=== PATIENT | female | born 1945 | race Caucasian/White ===

== ENCOUNTER → 2016-03-28 | Outpatient (CLI) | payer OTHER ==
[~2016-03-28] MED LIST: ASPI81TA28 PO; CALCTAB7 PO; CYAN10005 PO; EFFSR75 PO; LEVO88TA22 PO; LEVO88TA3 PO; MULT-506 PO; PANT40TA PO; SIMV40TA2 PO
--- NOTE | 2016-03-29 12:41 | MAMMOGRAPHY REPORT ---
BILATERAL DIGITAL SCREENING MAMMOGRAM WITH CAD: 03/28/2016 CLINICAL HISTORY: Routine screening. Patient has no complaints. TECHNIQUE: Bilateral CC and MLO views were obtained. Current study was also evaluated with a Comput er Aided Detection (CAD) system. COMPARISON: Comparison is made to exams dated: 03/26/2015 mammogram, 03/21/2014 ultrasound, 03/21/2014 ma mmogram, 09/16/2013 mammogram, 12/04/2012 mammogram, and 08/10/2011 mammogram - [facility] enter. BREAST COMPOSITION: There are scattered areas of fibroglandular density in both breasts. FINDINGS: There are bilateral benign coarse calcifications and rodlike secretory calcifications. No new suspicious mass, architectural distortion or cluster of suspicious microcalcifications is seen. IMPRESSION: ACR BI-RADS CATEGORY 1: NEGATIVE There is no mammographic evidence of malignancy. A 1 year screening mammogram is recommended. The p atient will receive written notification of the results. Approximately 10% of breast cancers are not detected with mammography. A negative mammographic repor t should not delay biopsy if a clinically suggestive mass is present. Kenia Douglas M.D. ay/:03/28/2016 15:23:15 Architecture Manager: Koki Tomlin, [facility] letter sent: Normal 1/2 BI-RADS Code: ACR BI-RADS Category 1: Negative
== END | disposition home or self-care (01) ==
LOC: C.MAMM 09:15
PROVIDERS: ATTEND Internal Medicine
DX: Z12.31 Encounter for screening mammogram for malignant neoplasm of breast (principal)

== ENCOUNTER → 2016-05-10 | Outpatient (CLI) | payer OTHER ==
[2016-05-10 12:46] LABS: BASO % 0.7 %; BASO ABS # 0.04 K/uL (0-0.2); COMPLETE YES; HEMATOCRIT 40.6 % (37-47); LYMPH % 25.7 %; LYMPH ABS # 1.39 K/uL (1.2-3.4); MEAN CELL VOLUME 97.8 fL (80-100); MEAN CORPUSCULAR HEMOGLOBIN 32.3 pg (25-34); MEAN PLATELET VOLUME 9.9 fL (7.4-10.4); MONO % 10.7 %; NEUT % 60.9 %; PLATELET COUNT 213 K/uL (130-400); RED BLOOD COUNT 4.15 M/uL (4.2-5.4); WHITE BLOOD COUNT 5.41 K/uL (4.8-10.8)
[2016-05-10 13:10] LABS: ALT/SGPT 21 U/L (12-78); BLOOD UREA NITROGEN 15 mg/dl (7-18); BUN/CREATININE RATIO 17.6 (10-20); CALCIUM 9.2 mg/dl (8.5-10.1); CARBON DIOXIDE 31 mmol/L (21-32); CHLORIDE 104 mmol/L (98-107); CHOLESTEROL 193 mg/dl (0-200); CREATININE 0.83 mg/dl (0.60-1.20); GLUCOSE 96 mg/dl (70-99); POTASSIUM 4.5 mmol/L (3.5-5.1); SODIUM 140 mmol/L (136-145)
[2016-05-10 13:19] LABS: ALKALINE PHOSPHATASE 74 U/L (45-117); AST/SGOT 16 U/L (15-37); CHOLESTEROL/HDL RATIO 3.4; HDL CHOLESTEROL 57 mg/dl; LDL CHOLESTEROL CALCULATED 104 mg/dl; THYROID STIMULATING HORMONE 0.961 uIu/ml (0.300-4.500); TRIGLYCERIDES 158 mg/dl (0-150); VERY LOW DENSITY LIPOPROT CALC 32 mg/dl
== END | disposition home or self-care (01) ==
LOC: C.LABBFT 08:42
PROVIDERS: ATTEND Internal Medicine
DX: E03.9 Hypothyroidism, unspecified (principal); E78.00 Pure hypercholesterolemia, unspecified; J06.9 Acute upper respiratory infection, unspecified; R73.03 Prediabetes

== ENCOUNTER → 2016-08-25 | Outpatient (CLI) | payer OTHER ==
[2016-08-25 17:37] LABS: URINE APPEARANCE CLOUDY (CLEAR); URINE BILIRUBIN NEG (NEG); URINE COLOR YELLOW; URINE EPITHELIAL CELL AUTO 0-5 /lpf (0-5); URINE NITRITE NEG (NEG); URINE PH 5.5 (4.5-7.5); URINE SPECIFIC GRAVITY 1.014 (1.000-1.030); UROBILINOGEN NEG (NEG)
[2016-08-25 17:48] LABS: MANUAL MICROSCOPIC REQUIRED? NO; REVIEW REQ? YES
== END | disposition home or self-care (01) ==
LOC: C.LABBFT 11:22
PROVIDERS: ATTEND Physician Assistant Medical
DX: R39.9 Unspecified symptoms and signs involving the genitourinary system (principal)

== ENCOUNTER → 2016-10-31 | Day surgery (SDC) | payer OTHER ==
[2016-10-18 11:50] VITALS: BMI 28.0
[~2016-10-31] VITALS: Ht 165.1 cm; Wt 77.3 kg
[~2016-10-31] MED LIST changes: -LEVO88TA22 PO; +LIDOCAINE HCL 2% 2 ML VIAL (20MG/ML) ONE; -PANT40TA PO; +PHENYLEPHRINE HCL INJ 10 MG/ML VIAL ONE; +PROPOFOL IV EMULSION 10 MG/ML 20 ML VIAL IV ONE; +SODIUM CHLORIDE 0.9% 500ML 500 ML IV ONE
[2016-10-31 14:09] VITALS: Ht 165.1 cm; Wt 77.3 kg
--- NOTE | 2016-10-31 14:21 | Endo History and Physical ---
History & Physical Date of Service: Oct 31, 2016. Chief Complaint: SCREENING Referring Physician: DR. CASTRO History of Present Illness 70 yo CF who presents for screening colonoscopy. Past Medical History Arthritis, Anxiety, Reflux, High Cholesterol, Thyroid Disease, Depression Past Surgical History Hx Cardiac Surgery: No Hx Internal Defibrillator: No Hx Pacemaker: No Hx Abdominal Surgery: No Hx of Implantable Prosthesis: No Hx Post-Op Nausea and Vomiting: Yes Hx Cancer Surgery: No Hx Thoracic Surgery: No Hx Orthopedic: Yes (LT TKA, LT SHOULDER SURGERY) Hx Urinary Tract Surgery: No Family History Colon CA Social History Smoking Status: Never Smoker Hx Substance Use: No Hx Alcohol Use: No Allergies Coded Allergies: Sulfa Antibiotics (Verified Allergy, Unknown, HIVES, 10/31/16) Current Medications Reported Home Medications Medications Dose Route/Sig Max Daily Dose Days Date Category Aspirin Ec (Aspirin) 81 Mg Tab 81 Mg PO WK 10/18/16 Reported Vitamin B-12 (Cyanocobalamin) 1,000 Mcg Tab 1,000 Mcg PO QAM 10/18/16 Reported Levothyroxine Sodium 88 Mcg Tab 1 Tab PO QAM 10/18/16 Reported Multivitamin (Multivitamins) Tab 1 Tab PO QAM 07/23/12 Reported Effexor Extended Rel (Venlafaxine Hcl) 75 Mg Capcr 75 Mg PO QAM 05/26/12 Reported Caltrate 600 Plus (Calcium Carbonate-Vitamin D W/) 1 Tab Tab 1 Tab PO QAM 05/26/12 Reported Zocor (Simvastatin) 40 Mg Tab 40 Mg PO QPM 05/26/12 Reported Vital Signs Weight (Kilograms): 77.27 Height (Feet): 5 Height (Inches): 5 Date Time Temp Pulse Resp B/P (MAP) Pulse Ox O2 Delivery O2 Flow Rate FiO2 10/31/16 14:14 36.4 77 16 138/88 (105) 93 Room Air Physical Exam General Appearance: WD/WN, no apparent distress Respiratory/Chest: Auscultation: breath sounds normal Cardiovascular: Heart Auscultation: RRR Abdomen: Bowel Sounds: normal Inspection & Palpation: soft, non-distended, no tenderness, guarding & rebound Assessment and Plan Assessment: 70 yo CF who presents for screening colonoscopy. Plan: Proceed with colonoscopy.
--- NOTE | 2016-10-31 15:54 | Discharge Instructions ---
Endoscopy Patient Instructions Date / Procedure(s) Performed Oct 31, 2016. Colonoscopy Allergy Information Coded Allergies: Sulfa Antibiotics (Verified Allergy, Unknown, HIVES, 10/31/16) Discharge Date / Findings Oct 31, 2016. Colon polyps Diverticulosis Internal hemorrhoids Medication Instructions OK to resume all medications today as prescribed Reported Home Medications Medications Dose Route/Sig Max Daily Dose Days Date Category Aspirin Ec (Aspirin) 81 Mg Tab 81 Mg PO WK 10/18/16 Reported Vitamin B-12 (Cyanocobalamin) 1,000 Mcg Tab 1,000 Mcg PO QAM 10/18/16 Reported Levothyroxine Sodium 88 Mcg Tab 1 Tab PO QAM 10/18/16 Reported Multivitamin (Multivitamins) Tab 1 Tab PO QAM 07/23/12 Reported Effexor Extended Rel (Venlafaxine Hcl) 75 Mg Capcr 75 Mg PO QAM 05/26/12 Reported Caltrate 600 Plus (Calcium Carbonate-Vitamin D W/) 1 Tab Tab 1 Tab PO QAM 05/26/12 Reported Zocor (Simvastatin) 40 Mg Tab 40 Mg PO QPM 05/26/12 Reported Provider Instructions Activity Restrictions - No exercising or heavy lifting for 24 hours. - Do not drink alcohol the day of the procedure. - Do not drive a car or operate machinery until the day after the procedure. - Do not make any important decisions or sign important papers in 24 hours after the procedure. Following Day: - Return to full activity which may include returning to work/school. Diet Start your diet with liquids and light foods (jello, soup, juice, toast). Then eat your usual diet if not nauseated. Treatment For Common After Affects For mild abdominal pain, bloating, or excessive gas: - Rest - Eat lightly - Lie on right side Follow-Up Information Follow-up with DR. CASTRO as scheduled Anesthesia Information What You Should Know You have had a procedure that required some medicine to reduce anxiety and discomfort. This treatment is called moderate sedation. After receiving the treatment, you may be sleepy, but you will be able to breathe on your own. The effects of the treatment may last for several hours. Follow these instructions along with Activity/Diet recommendations noted above: * Do NOT do anything where dizziness or clumsiness would be dangerous. * Rest quietly at home today, then you can be up and about tomorrow. * Have a responsible person stay with you the rest of today. * You may have had an I.V. today. If so, you may take the dressing off later today. Recommendations Call your doctor if: * Trouble breathing * Continuous vomiting for more than 24 hours * Temperature above 101 degrees * Severe abdominal pain or bloating * Pain not relieved by pain medicine ordered * There is increased drainage or redness from any incision * A large amount of rectal bleeding greater than 2-3 tablespoons. (If you had a polyp/s removed or have hemorrhoids, a small amount of blood - from the rectum is to be expected.) * You have any unanswered questions or concerns. IN THE EVENT OF A SERIOUS EMERGENCY, GO TO THE NEAREST EMERGENCY ROOM Your discharge instructions were prepared by provider Marco Anderson. Patient Instructions Signature Page Josseline Garcia Patient (or Guardian) Signature/Date: I have read and understand the instructions given to me by my caregivers. Caregiver/RN/Doctor Signature/Date: The above-named patient and/or guardian has received patient instructions on this date. + Original Patient Signature Page (only) stays with chart. Please make copy for patient.
--- NOTE | 2016-10-31 15:54 | GI REPORT ---
Procedure Date: 10/31/2016 3:08 PM Procedure: Colonoscopy Indications: Screening for colorectal malignant neoplasm Medicines: Monitored Anesthesia Care Complications: No immediate complications. Estimated Blood Loss: Estimated blood loss: none. Procedure: Pre-Anesthesia Assessment: - Prior to the procedure, a History and Physical was performed, and patient medications and allergies were reviewed. The patient's tolerance of previous anesthesia was also reviewed. The risks and benefits of the procedure and the sedation options and risks were discussed with the patient. All questions were answered, and informed consent was obtained. Prior Anticoagulants: The patient has taken aspirin, last dose was 8 days prior to procedure. ASA Grade Assessment: II - A patient with mild systemic disease. After reviewing the risks and benefits, the patient was deemed in satisfactory condition to undergo the procedure. After I obtained informed consent, the scope was passed under direct vision. Throughout the procedure, the patient's blood pressure, pulse, and oxygen saturations were monitored continuously. The scope was introduced through the anus and advanced to the terminal ileum. The colonoscopy was performed without difficulty. The patient tolerated the procedure well. The quality of the bowel preparation was good. The terminal ileum, ileocecal valve, appendiceal orifice, and rectum were photographed. Findings: A 6 mm polyp was found in the ascending colon. The polyp was sessile. The polyp was removed with a piecemeal technique using a hot snare. Resection and retrieval were complete. A 3 mm polyp was found in the ascending colon. The polyp was sessile. The polyp was removed with a cold biopsy forceps. Resection and retrieval were complete. Multiple small-mouthed diverticula were found in the sigmoid colon. Non-bleeding internal hemorrhoids were found during retroflexion. The hemorrhoids were small. Impression: - One 6 mm polyp in the ascending colon, removed piecemeal using a hot snare. Resected and retrieved. - One 3 mm polyp in the ascending colon, removed with a cold biopsy forceps. Resected and retrieved. - Diverticulosis in the sigmoid colon. - Non-bleeding internal hemorrhoids. Recommendation: - Resume previous diet. - Continue present medications. - Repeat colonoscopy for surveillance based on pathology results. - Return to primary care physician as previously scheduled. Marco Anderson DO 10/31/2016 3:53:21 PM This report has been signed electronically. Note Initiated On: 10/31/2016 3:08 PM I attest to the content of the Intraoperative Record and orders documented therein, exceptions below
[2016-10-31 16:29] VITALS: BP 107/46; PULSE 59; O2SAT 95
--- NOTE | 2016-10-31 16:36 | Anesthesiology Progress Note ---
Anesthesia Post Op Note Date & Time Oct 31, 2016 at 16:35 Vital Signs Pain Intensity: 0 Vital Signs Past 12 Hours Date Time Temp Pulse Resp B/P (MAP) Pulse Ox O2 Delivery O2 Flow Rate FiO2 10/31/16 16:29 59 20 107/46 (66) 95 Room Air 10/31/16 16:15 64 20 118/81 (93) 98 Room Air 10/31/16 15:57 70 20 116/65 (82) 95 Room Air 10/31/16 14:14 36.4 77 16 138/88 (105) 93 Room Air Notes Mental Status: alert / awake / arousable, participated in evaluation Pt Amnestic to Procedure: Yes Nausea / Vomiting: adequately controlled Pain: adequately controlled Airway Patency, RR, SpO2: stable & adequate BP & HR: stable & adequate Hydration State: stable & adequate Anesthetic Complications: no major complications apparent
== END | disposition home or self-care (01) ==
LOC: C.GI 13:48
PROVIDERS: ATTEND Internal Medicine
DX: Z12.11 Encounter for screening for malignant neoplasm of colon (principal); D12.2 Benign neoplasm of ascending colon; M19.90 Unspecified osteoarthritis, unspecified site; K21.9 Gastro-esophageal reflux disease without esophagitis; E78.00 Pure hypercholesterolemia, unspecified; K64.8 Other hemorrhoids; K57.90 Diverticulosis of intestine, part unspecified, without perforation or abscess without bleeding; F32.9 Major depressive disorder, single episode, unspecified; Z96.652 Presence of left artificial knee joint; Z79.82 Long term (current) use of aspirin; Z80.0 Family history of malignant neoplasm of digestive organs

== ENCOUNTER → 2017-01-09 | Outpatient (CLI) | payer OTHER ==
[~2017-01-09] MED LIST changes: -LIDOCAINE HCL 2% 2 ML VIAL (20MG/ML) ONE; -PHENYLEPHRINE HCL INJ 10 MG/ML VIAL ONE; -PROPOFOL IV EMULSION 10 MG/ML 20 ML VIAL IV ONE; -SODIUM CHLORIDE 0.9% 500ML 500 ML IV ONE
[2017-01-09 12:13] LABS: BASO % 0.6 %; BASO ABS # 0.03 K/uL (0-0.2); COMPLETE YES; EOS % 3.2 %; HEMATOCRIT 39.4 % (37-47); IG% 0.2 %; LYMPH % 27.7 %; MEAN CORPUSCULAR HEMOGLOBIN 32.7 pg (25-34); MEAN CORPUSCULAR HGB CONC 32.7 g/dl (32-36); MEAN PLATELET VOLUME 10.3 fL (7.4-10.4); MONO % 9.8 %; NEUT % 58.5 %; PLATELET COUNT 201 K/uL (130-400); RED BLOOD COUNT 3.94 M/uL (4.2-5.4); WHITE BLOOD COUNT 4.69 K/uL (4.8-10.8)
[2017-01-09 12:39] LABS: ALT/SGPT 21 U/L (12-78); BLOOD UREA NITROGEN 15 mg/dl (7-18); BUN/CREATININE RATIO 21.5 (10-20); CALCIUM 8.9 mg/dl (8.5-10.1); CARBON DIOXIDE 30 mmol/L (21-32); CHLORIDE 103 mmol/L (98-107); CHOLESTEROL 159 mg/dl (0-200); CREATININE 0.69 mg/dl (0.60-1.20); GLUCOSE 97 mg/dl (70-99); SODIUM 138 mmol/L (136-145); TRIGLYCERIDES 152 mg/dl (0-150); VERY LOW DENSITY LIPOPROT CALC 30 mg/dl
[2017-01-09 12:43] LABS: ESTIMATED AVERAGE GLUCOSE 123 mg/dl; HA1C FLAG Normal (Normal)
[2017-01-09 12:47] LABS: ALB/GLOB RATIO 1.1 (0.9-2); ALKALINE PHOSPHATASE 71 U/L (45-117); AST/SGOT 18 U/L (15-37); CHOLESTEROL/HDL RATIO 3.3; HDL CHOLESTEROL 48 mg/dl; LDL CHOLESTEROL CALCULATED 81 mg/dl; THYROID STIMULATING HORMONE 0.506 uIu/ml (0.300-4.500)
== END | disposition home or self-care (01) ==
LOC: C.LABBFT 08:22
PROVIDERS: ATTEND Internal Medicine
DX: E03.9 Hypothyroidism, unspecified (principal); E78.00 Pure hypercholesterolemia, unspecified; R73.03 Prediabetes

== ENCOUNTER → 2017-02-16 | Outpatient (CLI) | payer OTHER | END | disposition home or self-care (01) | LOC: C.MAMM 11:09 | PROVIDERS: ATTEND Internal Medicine | DX: M85.89 Other specified disorders of bone density and structure, multiple sites (principal) ==

== ENCOUNTER → 2017-02-27 | Outpatient (CLI) | payer OTHER | END | disposition home or self-care (01) | LOC: C.LABBFT 09:13 | PROVIDERS: ATTEND Internal Medicine | DX: M85.80 Other specified disorders of bone density and structure, unspecified site (principal) ==

== ENCOUNTER → 2017-03-30 | Outpatient (CLI) | payer OTHER ==
--- NOTE | 2017-03-30 14:39 | MAMMOGRAPHY REPORT ---
BILATERAL DIGITAL SCREENING MAMMOGRAM TOMOSYNTHESIS WITH CAD: 03/30/2017 CLINICAL HISTORY: Routine screening. Patient has no complaints. TECHNIQUE: Breast tomosynthesis in addition to standard 2D mammography was performed. Current study was also evaluated with a Computer Aided Detection (CAD) system. COMPARISON: Comparison is made to exams dated: 03/28/2016 mammogram, 03/26/2015 mammogram, 03/21/2014 mamm ogram, 12/04/2012 mammogram, 08/10/2011 mammogram - [facility], and 08/01/2008. BREAST COMPOSITION: There are scattered areas of fibroglandular density in both breasts. FINDINGS: No suspicious masses, calcifications, or areas of architectural distortion are noted in ei ther breast. There has been no significant interval change compared to prior exams. Scattered bilater al benign-appearing calcifications are not significantly changed. IMPRESSION: ACR BI-RADS CATEGORY 2: BENIGN There is no mammographic evidence of malignancy. A 1 year screening mammogram is recommended. The pa tient will receive written notification of the results. Approximately 10% of breast cancers are not detected with mammography. A negative mammographic report should not delay biopsy if a clinically suggestive mass is present. Annabella Espinal M.D. /:03/30/2017 12:37:45 Healthcare Management: Stacy RAMEY)(Meenakshi), [facility] letter sent: Normal 1/2 BI-RADS Code: ACR BI-RADS Category 2: Benign
== END | disposition home or self-care (01) ==
LOC: C.MAMM 09:30
PROVIDERS: ATTEND Internal Medicine
DX: Z12.31 Encounter for screening mammogram for malignant neoplasm of breast (principal)

== ENCOUNTER → 2017-06-12 | Outpatient (CLI) | payer OTHER ==
[2017-06-12 10:09] LABS: BASO % 0.9 %; BASO ABS # 0.04 K/uL (0-0.2); EOS % 2.4 %; EOS ABS # 0.11 K/uL (0-0.5); HEMATOCRIT 40.6 % (37-47); HEMOGLOBIN 13.2 g/dL (12.0-16.0); IG# 0.01 K/uL (0.00-0.02); LYMPH ABS # 1.31 K/uL (1.2-3.4); MEAN CORPUSCULAR HEMOGLOBIN 32.2 pg (25-34); MEAN CORPUSCULAR HGB CONC 32.5 g/dl (32-36); MONO % 8.4 %; MONO ABS # 0.38 K/uL (0.11-0.59); NEUT % 59.1 %; NEUT ABS # 2.66 K/uL (1.4-6.5); PLATELET COUNT 211 K/uL (130-400); RED CELL DISTRIBUTION WIDTH CV 13.5 % (11.5-14.5); RED CELL DISTRIBUTION WIDTH SD 48.7 fL (36.4-46.3); WHITE BLOOD COUNT 4.51 K/uL (4.8-10.8)
[2017-06-12 10:39] LABS: ALBUMIN 3.6 gm/dl (3.4-5.0); ALT/SGPT 21 U/L (12-78); BLOOD UREA NITROGEN 15 mg/dl (7-18); CALCIUM 8.9 mg/dl (8.5-10.1); CARBON DIOXIDE 28 mmol/L (21-32); CREATININE 0.65 mg/dl (0.60-1.20); GLUCOSE 92 mg/dl (70-99); POTASSIUM 4.1 mmol/L (3.5-5.1); SODIUM 139 mmol/L (136-145)
[2017-06-12 10:49] LABS: ALKALINE PHOSPHATASE 63 U/L (45-117); AST/SGOT 14 U/L (15-37); TOTAL PROTEIN 7.2 gm/dl (6.4-8.2)
[2017-06-16 15:02] LABS: VITAMIN B6** TC 926 25.4 ng/mL (2.1-21.7)
--- NOTE | 2017-06-23 11:43 | CODING QUERY MEDICAL NECESSITY ---
CQSUPPORTING DIAGNOSIS NEEDED A supporting diagnosis is required for the test/procedure performed on this patient in order for us to be reimbursed by the patient's insurance. Please provide a supporting diagnosis for the following test/procedure listed below next to the test name along with your signature. *If there is no additional diagnosis for this patient that would support the following test/procedure please document that below next to the test/procedure. Test(s)/Procedure(s) that require a supporting diagnosis: DOS 06/12/17 VITAMIN B12 TEST Provider Signature: Date: Thank you Shari Nayak Health Information Management Once completed, please kindly fax back to [phone] For questions please call [phone]
== END | disposition home or self-care (01) ==
LOC: C.LABBFT 08:26
PROVIDERS: ATTEND Physician Assistant Medical
DX: R20.8 Other disturbances of skin sensation (principal)

== ENCOUNTER → 2017-07-20 | Outpatient (CLI) | payer OTHER ==
[2017-07-20 12:48] LABS: BLOOD UREA NITROGEN 16 mg/dl (7-18); CREATININE 0.96 mg/dl (0.60-1.20)
== END | disposition home or self-care (01) ==
LOC: C.LABBFT 09:46
PROVIDERS: ATTEND Physician Assistant Medical
DX: Z01.812 Encounter for preprocedural laboratory examination (principal)

== ENCOUNTER → 2017-07-25 | Outpatient (CLI) | payer OTHER ==
[~2017-07-25] MED LIST changes: +GADAVIST IV PRN
--- NOTE | 2017-07-25 19:04 | DIAGNOSTIC IMAGING REPORT ---
MRI OF THE BRAIN WITHOUT AND WITH IV CONTRAST CLINICAL HISTORY: H54.7 Loss of vision COMPARISON STUDY: No previous studies for comparison. TECHNIQUE: MRI of the brain was performed from the vertex to the skull base utilizing various T1 and T2 weighted sequences. Following the IV administration of 7.5 mL of Gadavist contrast, additional enhanced images were obtained. FINDINGS: Sagittal T1, axial diffusion, proton density and T2 weighted axial, coronal FLAIR, and pre and post axial T1-weighted images were acquired. These were supplemented with post gadolinium coronal T1 weighted images. No intra or extra-axial mass lesions are visualized. Axial diffusion-weighted images reveal no evidence of acute or subacute infarction. There is no evidence of ventricular dilatation. Proton density T2-weighted and FLAIR images reveal foci of periventricular increased T2 signal, most pronounced in the occipital region. While nonspecific, the findings are likely a small vessel basis. There are no abnormal flow voids. There is no evidence of pathologic enhancement. IMPRESSION: 1. No acute intracranial findings 2. No evidence of intracranial mass 3. No evidence of acute or subacute infarction 4. Periventricular foci of increased T2 signal, likely on a small vessel basis. Electronically signed by: Andrey Hoffmann M.D. 07/25/2017 7:03 PM Dictated Date/Time: 07/25/2017 7:01 PM
== END | disposition home or self-care (01) ==
LOC: C.MRI 17:54
PROVIDERS: ATTEND Physician Assistant Medical
DX: H54.7 Unspecified visual loss (principal)

== ENCOUNTER → 2017-10-19 | Outpatient (CLI) | payer OTHER ==
[~2017-10-19] MED LIST changes: -GADAVIST IV PRN
[2017-10-19 12:22] LABS: BASO % 1.2 %; BASO ABS # 0.05 K/uL (0-0.2); EOS % 2.3 %; HEMATOCRIT 39.2 % (37-47); HEMOGLOBIN 12.9 g/dL (12.0-16.0); IG# 0.01 K/uL (0.00-0.02); LYMPH % 30.1 %; MEAN CELL VOLUME 99.7 fL (80-100); MEAN CORPUSCULAR HEMOGLOBIN 32.8 pg (25-34); MEAN CORPUSCULAR HGB CONC 32.9 g/dl (32-36); MEAN PLATELET VOLUME 10.5 fL (7.4-10.4); MONO % 9.5 %; MONO ABS # 0.41 K/uL (0.11-0.59); NEUT % 56.7 %; NEUT ABS # 2.45 K/uL (1.4-6.5); PLATELET COUNT 188 K/uL (130-400); RED CELL DISTRIBUTION WIDTH CV 13.7 % (11.5-14.5); WHITE BLOOD COUNT 4.32 K/uL (4.8-10.8)
[2017-10-19 13:10] LABS: ALBUMIN 3.4 gm/dl (3.4-5.0); ALKALINE PHOSPHATASE 60 U/L (45-117); ALT/SGPT 19 U/L (12-78); AST/SGOT 13 U/L (15-37); BLOOD UREA NITROGEN 19 mg/dl (7-18); CALCIUM 8.1 mg/dl (8.5-10.1); CARBON DIOXIDE 28 mmol/L (21-32); CHOLESTEROL 167 mg/dl (0-200); CREATININE 0.65 mg/dl (0.60-1.20); GLUCOSE 89 mg/dl (70-99); LDL CHOLESTEROL CALCULATED 91 mg/dl; SODIUM 139 mmol/L (136-145); TOTAL PROTEIN 6.5 gm/dl (6.4-8.2)
== END | disposition home or self-care (01) ==
LOC: C.LABBFT 08:02
PROVIDERS: ATTEND Internal Medicine
DX: E03.9 Hypothyroidism, unspecified (principal); E78.00 Pure hypercholesterolemia, unspecified; R73.03 Prediabetes; R03.0 Elevated blood-pressure reading, without diagnosis of hypertension

== ENCOUNTER 2024-12-28 11:20 | Inpatient (IN) ==
[2024-12-28] MEDS: ACETAMINOPHEN 1,000 MG/100 ML VIAL IV STA (12:23)
[2024-12-28] MEDS: HYDROmorphone INJ 0.5 MG/0.5 ML SYR IV STA (12:23)
--- NOTE | 2024-12-28 12:35 | XRay Report ---
Clinical History: Injury 5 views of the left knee are submitted for review. Findings: There is an acute comminuted fracture of the distal left femoral shaft and metaphysis with 45° of apex anterior angulation as well as displacement of fracture fragments. There is a left knee total arthroplasty in expected position. There is no definite sign of infection or loosening. No other osseous abnormality is identified. There are no radiopaque foreign bodies. Impression: 1. Acute comminuted fracture of the distal left femur with displacement and angulation 2. Left knee replacement ACT 112: Positive. There are findings on this exam that require communication between the performing entity and the patient following Patient Test Result Information Act ([place] ACT 112) guidelines. Electronically signed by Heron Barriga 12-28-2024 12:35 PM
--- NOTE | 2024-12-28 12:51 | Emergency Department Note ---
Impression & Plan Fracture of femur ED Provider Note NAME: RAMOS BARTON AGE: 79 SEX: F : 1945 ARRIVES VIA: Walk-In INFORMANT: Patient, ED PROVIDER(S): Quirino Cooper MD CHIEF COMPLAINT: Left knee injury HPI: This is a 79-year-old female seen for left knee injury. Patient states that she was in her barn on the second floor. Her right foot went through a hole in the barn roof. Her left leg got bent backwards. She noticed that she had pain to the left knee at this time. Swelling to the left knee. No head trauma. No blood thinners. No chest pain or shortness of breath ROS: See above HPI for pertinent positives & negatives. A total of 10 systems reviewed and were otherwise negative. PAST MEDICAL HISTORY: See Below PAST SURGICAL HISTORY: See Below FAMILY HISTORY: See Below SOCIAL HISTORY: See Below HOME MEDICATIONS: See Below ALLERGIES: See Below VITALS: See Below PHYSICAL EXAMINATION: General: resting comfortably in no acute distress Head: Normocephalic and atraumatic Eyes: Normal inspection, extraocular muscles intact Ear, nose, throat: Normal external exam Neck: Normal range of motion Respiratory: lungs clear to auscultation bilaterally Cardiovascular: Regular rate/rhythm, no murmur GI: soft, nontender, no guarding or rebound Extremities: Left knee swelling, tenderness to palpation, no hip pain Neuro: The patient awake and alert, appropriately conversive, no focal deficits, symmetric faces Skin: Warm, dry, and intact MEDICAL DECISION MAKING: This is a 79-year-old female presenting for left knee injury. Patient has significantly swollen left knee. Will do x-rays help assess. . X-ray as Independently interpreted me reveals a distal femur fracture, comminuted and displaced - Discussed case with orthopedic surgery, patient is Rakesh Alfonso PA-C for orthopedics. He will discuss with attending, Dr. Castellanos for determination of operative management here versus an outside facility. -Orthopedics is comfortable with admission here. Will order screening blood work, EKG. -Bloodwork is reviewed showing no significant leukocytosis, anemia, electrolyte or creatinine abnormality -ECG independently interpreted by me with normal sinus rhythm, rate of 69, normal axis, normal AR, normal QRS, normal QTc, no ST segment elevations consistent with STEMI criteria -Care discussed with Dr. Li for admission Differential diagnosis: Femur fracture, tib-fib fracture, tibial plateau fracture, patella fracture, knee dislocation Independent History obtained from: Diagnostics interpreted by me: ECG: See above Cardiac Monitoring: An order was placed for continuous cardiac monitoring. The monitor shows a rate of 67 with sinus rhythm. Past Med/Surg History Problem List (Updated 12/28/24 @ 20:12 by Quirino Cooper MD) Fracture of femur (Acute) Closed fracture of left distal femur Paresthesias (Acute) Normocytic anemia (Acute) Leukopenia (Acute) Alopecia (Acute) Medical History (Updated 12/28/24 @ 20:12 by Quirino Cooper MD) Benign familial tremor Cervical spondylosis without myelopathy Chronic gastritis Diverticulosis Hypothyroidism, unspecified (05/26/12) Hypercholesterolemia Prediabetes metformin daily Solitary pulmonary nodule Depression with anxiety History of colon polyps Osteoporosis Mitral regurgitation Stress incontinence Irritable bowel syndrome Nausea and vomiting after administration of anesthetic agent Depression Tubular adenoma of colon Internal hemorrhoids Surgical History (Updated 12/28/24 @ 14:50 by Janie Oseguera DO) History of esophagogastroduodenoscopy (EGD) last 2014 @ [facility] History of tooth extraction History of total knee arthroplasty left History of arthroscopy of left shoulder rotator cuff repair History of colonoscopy last 2021 @ [facility] History of tubal ligation Family History Father Leukemia Stroke syndrome Mother Diabetes Hypertension Grandmother Colon cancer Other No family history of adverse response to anesthesia Prostate cancer Denies family history of Ovarian cancer Myocardial infarction Breast cancer Social History Smoking Status: Never smoker Second Hand Exposure: No; Do You Dip or Chew Tobacco: No; Hx Alcohol Use: No Hx Substance Use: No Preferred Language: Honduran Communication Ability: Effective Visual Impairment: Limited Hearing Ability: Normal Mud Grinder Required: No Beliefs That Will Affect Care: None marital status: Current Living Situation: Spouse current occupational status: retired Other Information That Helps Us Care for You: No Feels Safe at Home: Yes Safety Concerns: Feels Safe At This Time Childhood Exposure to Second-Hand Smoke: Yes Diet: regular caffeine: Yes during the past year weight has: remained stable Dental Care, Regularly: Yes Physical Activity Frequency: 1-2 Times per Week Seatbelt Use: always Sunscreen Use: Yes Assistive Devices: None and Glasses Allergies Allergies Allergy/AdvReac Type Severity Reaction Status Date / Time Sulfa (Sulfonamide Allergy Intermediate HIVES Verified 06/13/24 10:24 Antibiotics) Home Meds Home Medications Medication Instructions Recorded Confirmed calcium 600 mg (as 1 cap PO QAM 01/06/22 12/28/24 carbonate)-vitamin D3 5 mcg (200 unit) capsule (Calcium 600 + D(3)) cyanocobalamin (vitamin B-12) 1,000 mcg PO QAM 01/06/22 12/28/24 1,000 mcg tablet (Vitamin B-12) multivitamin 1 tab PO QAM 01/06/22 12/28/24 aspirin 81 mg tablet,delayed 81 mg PO 3XWK 08/31/23 12/28/24 release Previous Rx's Medication Instructions Recorded venlafaxine 75 mg capsule,extended 75 mg PO DAILY #90 caps 02/01/24 release 24 hr atorvastatin 80 mg tablet 80 mg PO HS #90 tabs 02/07/24 levothyroxine 88 mcg tablet 88 mcg PO QAM #90 tabs 02/12/24 metformin 500 mg tablet,extended 500 mg PO BID #180 tabs 03/11/24 release 24 hr Results & Data (ED) Vital Signs Vital Signs - 24 hr 12/28/24 11:22 12/28/24 12:33 12/28/24 12:35 Temperature 36.6 C Temperature Source Temporal Artery Scan Pulse Rate 74 69 69 Pulse Rate from SpO2 Sensor 68 Respiratory Rate 18 28 H Blood Pressure 131/72 Blood Pressure Mean 91 Pulse Oximetry 97 96 Oxygen Delivery Method Oxygen Flow Rate Sepsis Recent Fever Within 48 Hours No Sepsis New/Unexplained Change in Mental Status No Sepsis Action Taken by Nursing No Action Required Oxygen Flow Rate - Titration Pulse Oximetry Post Tiitration 12/28/24 12:38 12/28/24 13:00 12/28/24 13:06 Temperature Temperature Source Pulse Rate 69 Pulse Rate from SpO2 Sensor 67 Respiratory Rate 18 Blood Pressure 138/79 Blood Pressure Mean 96 Pulse Oximetry 88 L 97 Oxygen Delivery Method Room Air Nasal Cannula Oxygen Flow Rate 0 Sepsis Recent Fever Within 48 Hours Sepsis New/Unexplained Change in Mental Status Sepsis Action Taken by Nursing Oxygen Flow Rate - Titration 3 Pulse Oximetry Post Tiitration 96 12/28/24 13:30 Temperature Temperature Source Pulse Rate 67 Pulse Rate from SpO2 Sensor 67 Respiratory Rate 19 Blood Pressure Blood Pressure Mean Pulse Oximetry 98 Oxygen Delivery Method Oxygen Flow Rate Sepsis Recent Fever Within 48 Hours Sepsis New/Unexplained Change in Mental Status Sepsis Action Taken by Nursing Oxygen Flow Rate - Titration Pulse Oximetry Post Tiitration Laboratory Data 12/28/24 12:15 12/28/24 12:15 Lab Results 12/28/24 Range/Units 12:15 WBC 10.40 (4.8-10.8) K/ul RBC 3.63 L (4.20-5.40) M/uL Hgb 12.0 (12.0-16.0) g/dl Hct 36.5 L (37.0-47.0) % MCV 100.6 H (80.0-100.0) fL MCH 33.1 (25.0-34.0) pg MCHC 32.9 (32.0-36.0) g/dL RDW Std Deviation 48.8 H (36.4-46.3) fL RDW Coeff of Mayda 13.2 (11.5-14.5) % Plt Count 180 (130-400) K/uL MPV 10.0 (9.4-12.4) fL Immature Gran % (Auto) 0.3 % Neut % (Auto) 79.3 % Lymph % (Auto) 11.4 % Murray % (Auto) 6.3 % Eos % (Auto) 2.0 % Baso % (Auto) 0.7 % Neut # (Auto) 8.24 H (1.40-6.50) K/uL Lymph # (Auto) 1.19 L (1.20-3.40) K/uL Murray # (Auto) 0.66 H (0.11-0.59) K/uL Eos # (Auto) 0.21 (0.00-0.50) K/uL Baso # (Auto) 0.07 (0.00-0.20) K/uL Immature Gran # (Auto) 0.03 (0.01-0.20) K/uL Sodium 137 (136-145) mmol/L Potassium 4.0 (3.5-5.1) mmol/L Chloride 102 (98-107) mmol/L Carbon Dioxide 29 (21-32) mmol/L Anion Gap 6 (3-11) BUN 19 (6-23) mg/dl Creatinine 0.69 (0.6-1.2) mg/dl Est Cr Clr Drug Dosing 62.9 ml/min eGFR 87.13 BUN/Creatinine Ratio 27.5 H (10-20) Glucose 113 H (70-99(Fasting)) mg/dl Calcium 9.6 (8.6-10.3) mg/dl Total Bilirubin 0.7 (0.2-1.0) mg/dl AST 25 (13-39) U/L ALT 19 (7-52) U/L Alkaline Phosphatase 73 (34-104) U/L Total Protein 6.5 (6.0-8.3) gm/dl Albumin 3.9 (3.4-5.0) gm/dl Globulin 2.6 (2.5-4.0) gm/dl Albumin/Globulin Ratio 1.5 (0.9-2) Administered Medications Hydromorphone HCl (Hydromorphone Inj 1 Mg/Ml Syringe) 1 mg IV Q3H PRN PRN Reason: Severe Pain (7,8,9,10) on NRS Stop: 01/11/25 14:21 Last Admin: 12/28/24 18:30 Dose: 1 mg Documented By: B Admin: 12/28/24 15:04 Dose: 1 mg Documented By: natalie Lactated Ringer's (Lr) 1,000 mls @ 125 mls/hr IV .Q8H [facility] Stop: 12/31/24 14:29 Last Admin: 12/28/24 14:42 Dose: 125 mls/hr Documented By: natalie Insulin Aspart (Insulin Aspart Per Unit Charge) 0 units SC ACHS ESAU Stop: 01/27/25 16:29 Last Admin: 12/28/24 16:50 Dose: Not Given Documented By: mls Discontinued Medications Hydromorphone HCl (Hydromorphone Inj 0.5 Mg/0.5 Ml Syr) 0.5 mg IV NOW STA Stop: 12/28/24 12:18 Last Admin: 12/28/24 12:23 Dose: 0.5 mg Documented By: AMOS Acetaminophen (Ofirmev) 1,000 mg in 100 mls @ 400 mls/hr IV NOW STA Stop: 12/28/24 12:31 Last Infusion: 12/28/24 12:38 Dose: Infused Documented By: Admin: 12/28/24 12:23 Dose: 400 mls/hr Documented By: AMOS Imaging Data Radiologist's Impression: Knee X-Ray 12/28/24 11:45 Clinical History: Injury 5 views of the left knee are submitted for review. Findings: There is an acute comminuted fracture of the distal left femoral shaft and metaphysis with 45° of apex anterior angulation as well as displacement of fracture fragments. There is a left knee total arthroplasty in expected position. There is no definite sign of infection or loosening. No other osseous abnormality is identified. There are no radiopaque foreign bodies. Impression: 1. Acute comminuted fracture of the distal left femur with displacement and angulation 2. Left knee replacement ACT 112: Positive. There are findings on this exam that require communication between the performing entity and the patient following Patient Test Result Information Act ([place] ACT 112) guidelines. Electronically signed by Heron Barriga 12-28-2024 12:35 PM Discharge Plan Visit Data Chief Complaint: Knee Injury/Pain Stated Complaint: L KNEE INJURY ED Provider: Quirino Cooper Discharge Problem: Fracture of femur Patient Disposition: Admitted As Inpatient Condition: Fair Discharge Instructions Interventions: ED Discharge Assessment Last Done: 12/28/24 17:42 Discharge Problem: Fracture of femur Qualifiers: Encounter type: initial encounter Femur location: distal, unspecified portion F racture type: closed Laterality: left
[2024-12-28 13:12] LABS: Hematocrit (blood only) 36.5 % (37.0-47.0); Hemoglobin 12.0 g/dl (12.0-16.0); Immature Granulocytes # (auto) 0.03 K/uL (0.01-0.20); Immature Granulocytes % (auto) 0.3 %; Mean Corpuscular Hemoglobin 33.1 pg (25.0-34.0); Mean Corpuscular Volume 100.6 fL (80.0-100.0); Platelet Count 180 K/uL (130-400); RDW Standard Deviation 48.8 fL (36.4-46.3); Red Blood Count 3.63 M/uL (4.20-5.40); White Blood Count 10.40 K/ul (4.8-10.8)
[2024-12-28 13:34] LABS: Alanine Aminotransferase 19.0 U/L (7-52); Albumin Globulin Ratio 1.5 (0.9-2); Albumin Level 3.9 gm/dl (3.4-5.0); Alkaline Phosphatase 73.0 U/L (34-104); Anion Gap 6.0 (3-11); Bilirubin,Total 0.7 mg/dl (0.2-1.0); Blood Urea Nitrogen 19.0 mg/dl (6-23); Calcium 9.6 mg/dl (8.6-10.3); Carbon Dioxide 29.0 mmol/L (21-32); Chloride 102.0 mmol/L (98-107); Creatinine Clr Calc Pharmacy 62.9 ml/min; Globulin 2.6 gm/dl (2.5-4.0); Glucose 113.0 mg/dl (70-99(Fasting)); Potassium 4.0 mmol/L (3.5-5.1); Sodium 137.0 mmol/L (136-145); Total Protein 6.5 gm/dl (6.0-8.3)
--- NOTE | 2024-12-28 13:34 | History & Physical Report ---
Date of Service December 28, 2024 Assessment & Plan (1) Closed fracture of left distal femur: Plan: Left distal femur fracture Occurred when her right leg fell through the barn floor, left leg was bent backwards and she heard a snap consistent with acute trauma leading to femoral fracture No head injury, head strike, or loss of consciousness She is prescribed aspirin but has not taken this in 8 days. She has a history of prediabetes on metformin last A1c 6. 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 She was lifting and moving hay lionel in her barn prior to a mechanical injury with no chest pain or shortness of breath. X-ray: Distal angulated femur fracture Orthopedics consulted, and reviewed with Parvez Alfonso. They have seen and reviewed the images. Appropriate for management here and has been scheduled for surgery at 7:30 AM 12/29. Neurovascularly intact on exam Admit to [facility]O. N.p.o. at midnight. LR IV FM Multimodal pain control, Tylenol with breakthrough hydromorphone Narcan on-call for narcosis Mitral regurgitation Chronic, no history of heart failure. Noted. Hypothyroidism Continue Synthroid Hyperlipidemia Resume statin postop DVT PPx: SCDs, lovenox postop Diet: Clears, NPO at midnight CODE: DNR/DNI Dispo: [facility] (2) Mitral regurgitation: (3) Hypercholesterolemia: History of Present Illness Primary Care Provider: Bjorn Aldrich MD Josseline is an 79-year-old female with past medical history of hypothyroidism, benign tremor, depression/anxiety, mitral regurgitation, IBS, hyperlipidemia, stress incontinence who at her leg fell through a hole in her barn roof which caused her leg to bend backwards. She had pain in her left knee with swelling at the time, she did not strike her head/lose consciousness/fall through the floor. She is not anticoagulated. Per signout: X-ray in the ER shows an acute comminuted fracture of the distal left femur with displacement and angulation. Left knee replacement is noted. She is normotensive and with a regular heart rate. Dr. Castellanos consulted. Adequate pain control with tylenol and hydromorphine Recommended knee immobilizer however this was not able to be applied PUlses intact OR repair AM 12/29 Per patient: Josseline is seen at the bedside. She reports she was walking on the top of the barn floor. There are some thin pieces of boards on the floor. She was moving hay lionel around when her RIGHT leg went through a floorboard and her weight dropped causing her LEFT leg to bend backwards. She immediately had severe pain and cried out, her sons were able to come help her. Could not put any weight at all on the leg without severe pain into the knee. Family got her onto a bulk tank car unloader and into the car and came directly to the ER. Medical History: - Prediabetes, does take metformin. A1C 'is around 6, whatever that means' - Takes synthroid for hypothyroidism - Takes atorvastatin for HLD - Takes aspirin 'whenever I feel like it, supposed to be 3 times a week' but actually takes around once per week. Last took an aspirin monday before last (8 days ago). - Takes effexor 75mg sporadically but not consistently No COPD, no hx farmers lung No kidney problems No heart attacks NO anginal symptoms No tobacco No ETOH No drugs Sulfa allergies --> hives. Toelrates penicillin well without allergy NSQUIPS: 4.1% Risk of serious complications, 4.7% risk of any complications (overall risk). 0.1% change of cardiac complication. DNR/DNI Reviewed with/benefits of blood at bedside, consent signed Allergies Allergy/AdvReac Type Severity Reaction Status Date / Time Sulfa (Sulfonamide Allergy Intermediate HIVES Verified 06/13/24 10:24 Antibiotics) Home Medications Medication Instructions Recorded Confirmed Type calcium 600 mg (as 1 cap PO QAM 01/06/22 12/28/24 History carbonate)-vitamin D3 5 mcg (200 unit) capsule (Calcium 600 + D(3)) cyanocobalamin (vitamin B-12) 1,000 mcg PO QAM 01/06/22 12/28/24 History 1,000 mcg tablet (Vitamin B-12) multivitamin 1 tab PO QAM 01/06/22 12/28/24 History aspirin 81 mg tablet,delayed 81 mg PO 3XWK 08/31/23 12/28/24 History release venlafaxine 75 mg capsule,extended 75 mg PO DAILY #90 caps 02/01/24 12/28/24 Rx release 24 hr atorvastatin 80 mg tablet 80 mg PO HS #90 tabs 02/07/24 12/28/24 Rx levothyroxine 88 mcg tablet 88 mcg PO QAM #90 tabs 02/12/24 12/28/24 Rx metformin 500 mg tablet,extended 500 mg PO BID #180 tabs 03/11/24 12/28/24 Rx release 24 hr Past Med/Surg History Problem List (Updated 12/28/24 @ 14:42 by Tyler Li MD) Closed fracture of left distal femur Stress incontinence Mitral regurgitation Osteoporosis History of colon polyps Depression with anxiety Solitary pulmonary nodule (Acute) Prediabetes (Acute) metformin daily Paresthesias (Acute) Normocytic anemia (Acute) Leukopenia (Acute) Irritable bowel syndrome (Acute) Hypercholesterolemia (Acute) Hypothyroidism, unspecified (Acute 05/26/12) Diverticulosis (Acute) Chronic gastritis (Acute) Cervical spondylosis without myelopathy (Acute) Benign familial tremor (Acute) Alopecia (Acute) Left knee DJD (Acute) Medical History Nausea and vomiting after administration of anesthetic agent Depression Tubular adenoma Tubular adenoma of colon Internal hemorrhoids Surgical History History of esophagogastroduodenoscopy (EGD) last 2014 @ [facility] History of tooth extraction History of total knee arthroplasty left History of arthroscopy of left shoulder rotator cuff repair History of colonoscopy last 2016 @ [facility] History of tubal ligation Family History Father Leukemia Stroke syndrome Mother Diabetes Hypertension Grandmother Colon cancer Other No family history of adverse response to anesthesia Prostate cancer Denies family history of Ovarian cancer Myocardial infarction Breast cancer Social History Smoking Status: Never smoker Second Hand Exposure: No; Do You Dip or Chew Tobacco: No; Hx Alcohol Use: Yes Alcohol type: wine Hx Substance Use: No Preferred Language: Portuguese Communication Ability: Effective Visual Impairment: Limited Hearing Ability: Normal 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 NAD. Cooperative. HEENT: Atraumatic, normocephalic. PERLAA. Vision and hearing grossly intact Pulm: CTAB A&P. -wheezes, -rales, -rhonchi. Symmetrical chest rise. No increased work of breathing. No respiratory distress. Cardiac: RRR, +sm. Radial pulses intact and symmetrical. Abdominal: Nontender, nondistended, soft. BS present. Ext: Ankle dorsiflexion/plantarflexion intact bilaterally with 5/5 strength. Left extremity is sitting propped up with rolled up towel underneath the knee. Left PT/DP pulse are intact and palpable. Sensation to soft touch is intact in the feet bilateral without deficit. Patient is focally tender to palpation at her anterior and lateral left knee/distal femur. Slight swelling is noted. There is no deep calf pain or numbness/tingling. Results & Data Results & Data Vital Signs (Past 12 Hours) Vital Signs Temp Pulse Resp BP Pulse Ox O2 Del Method O2 Flow Rate 12/28/24 12:38 88 L Room Air, Nasal Cannula 0 12/28/24 12:35 69 12/28/24 11:22 36.6 C 74 18 131/72 97 PG Care Time/CCT Total # of Minutes Spent Total Time Spent with Patient: Total time spent is greater than 50% in coordination of care (as documented) at patient's floor/unit and/or counseling patient: Coding Level of Care Code 70220 INT INP/OBS CARE 3/75MIN Diagnoses Closed fracture of left distal femur S72.402A Mitral regurgitation I34.0 Hypercholesterolemia E78.00
[2024-12-28] MEDS ORDERED: HYDROmorphone INJ 0.5 MG/0.5 ML SYR IV PRN (14:22)
[2024-12-28] MEDS ORDERED: GLUCAGON FOR INJ 1 MG VIAL SQ PRN (14:30)
[2024-12-28] MEDS ORDERED: DEXTROSE 50% 50 ML SYRINGE IV PRN (14:30)
[2024-12-28] MEDS ORDERED: GLUCOSE 40% GEL 15 GM TUBE PO PRN (14:30)
[2024-12-28] MEDS ORDERED: GLUCOSE 10 TAB/TUBE PO PRN (14:30)
[2024-12-28] MEDS ORDERED: CARBOHYDRATES FOR HYPOGLYCEMIA PO PRN (14:30)
[2024-12-28] MEDS: LACTATED RINGER'S 1,000 ML IV SCH (14:42)
[2024-12-28] MEDS ORDERED: NALOXONE HCL 0.4 MG/1 ML VIAL/CARP IV PRN (14:48)
[2024-12-28] MEDS ORDERED: MAGNESIUM HYDROXIDE SUSP 30 ML UDC PO PRN (14:48)
--- NOTE | 2024-12-28 14:52 | Anesthesiology Consultation ---
Date of Service December 28, 2024 Assessment & Plan Chart Review Chart Review: Acceptable Risk for Surgery Consults Requested none ASA ASA2 Proposed Anesthesia Anesthesia Type: MAC Spinal Risk / Benefits Reviewed With: PT / POA / Parent / Guardian, Accepts Plan and Informed Consent Obtained History Surgery Operation Date: 12/29/24 07:30 Proposed Procedures p Open Reduction Internal Fixation Femur(Left) - Abdiaziz Castellanos, Height/Weight Height: 5 ft 5 in Weight: 70.2 kg Allergies Allergy/AdvReac Type Severity Reaction Status Date / Time Sulfa (Sulfonamide Allergy Intermediate HIVES Verified 06/13/24 10:24 Antibiotics) Medications Home Medications Medication Instructions Recorded Confirmed Last Taken calcium 600 mg (as 1 cap PO QAM 01/06/22 12/28/24 01/08/22 carbonate)-vitamin D3 5 mcg (200 unit) capsule (Calcium 600 + D(3)) cyanocobalamin (vitamin B-12) 1,000 mcg PO QAM 01/06/22 12/28/24 01/08/22 1,000 mcg tablet (Vitamin B-12) multivitamin 1 tab PO QAM 01/06/22 12/28/24 01/09/22 aspirin 81 mg tablet,delayed 81 mg PO 3XWK 08/31/23 12/28/24 Unknown release venlafaxine 75 mg capsule,extended 75 mg PO DAILY #90 caps 02/01/24 12/28/24 Unknown release 24 hr atorvastatin 80 mg tablet 80 mg PO HS #90 tabs 02/07/24 12/28/24 Unknown levothyroxine 88 mcg tablet 88 mcg PO QAM #90 tabs 02/12/24 12/28/24 Unknown metformin 500 mg tablet,extended 500 mg PO BID #180 tabs 03/11/24 12/28/24 Unknown release 24 hr Active Medications Generic Name Dose Route Start Last Admin Trade Name Freq PRN Reason Stop Dose Admin Hydromorphone HCl 1 mg 12/28/24 14:22 12/29/24 00:08 Hydromorphone Inj 1 Mg/Ml Syringe IV 01/11/25 14:21 1 mg Q3H PRN Administration Severe Pain (7,8,9,10) on NRS Acetaminophen 1,000 mg in 100 mls @ 400 mls/hr 12/28/24 14:22 12/28/24 20:45 Ofirmev IV 12/31/24 14:21 Infused Q8H PRN Infusion Fever/Mild Pain (Pain 1,2,3) Lactated Ringer's 1,000 mls @ 125 mls/hr 12/28/24 14:30 12/29/24 00:07 Lr IV 12/31/24 14:29 125 mls/hr .Q8H ESAU Administration Insulin Aspart 0 units 12/29/24 00:00 12/29/24 06:07 Insulin Aspart Per Unit Charge SC 01/28/25 00:00 Not Given Q6 ESAU Levothyroxine Sodium 88 mcg 12/29/24 06:30 12/29/24 06:20 Levothyroxine Sodium 88 Mcg Tablet PO 01/28/25 06:29 Not Given DAILYBB ESAU NPO Date Last Intake of Fluids: 12/28/24 Time Last Intake of Fluids: 23:59 Date Last Intake of Solids: 12/28/24 Time Last Intake of Solids: 18:00 Past Medical History Medical History Benign familial tremor Cervical spondylosis without myelopathy Chronic gastritis Diverticulosis Hypothyroidism, unspecified (05/26/12) Hypercholesterolemia Prediabetes metformin daily Solitary pulmonary nodule Depression with anxiety History of colon polyps Osteoporosis Mitral regurgitation Stress incontinence Irritable bowel syndrome Nausea and vomiting after administration of anesthetic agent Depression Tubular adenoma of colon Internal hemorrhoids Exercise / Class Metabolic Activity II 4-5 Yardwork/Stairs/Walk up hill moving haybales when fx occurred Past Family History Family History Father Leukemia Stroke syndrome Mother Diabetes Hypertension Grandmother Colon cancer Other No family history of adverse response to anesthesia Prostate cancer Denies family history of Ovarian cancer Myocardial infarction Breast cancer Past Surgical History Surgical History History of esophagogastroduodenoscopy (EGD) last 2014 @ [facility] History of tooth extraction History of total knee arthroplasty left History of arthroscopy of left shoulder rotator cuff repair History of colonoscopy last 2021 @ [facility] History of tubal ligation Past Anesthesia History No Hx of Anesthesia Complications and No Family Hx of Anesthesia Complications History of PONV No Hx of Motion Sickness and History of PONV Social History Smoking Status: Never smoker Do You Dip or Chew Tobacco: No Hx Alcohol Use: Yes Alcohol type: wine alcohol intake frequency: holidays/special occasions only Hx Substance Use: No substance use type: does not use Physical Exam Vital Signs Last Vital Signs Temp 36.4 C L 12/29/24 07:00 Pulse 79 12/29/24 07:00 Resp 18 12/29/24 07:00 BP 102/65 12/29/24 07:00 Pulse Ox 99 12/29/24 07:00 O2 Del Method Room Air 12/29/24 07:00 O2 Flow Rate 3 12/29/24 07:00 ENMT Mouth: no TMJ abnormality Thyromental Distance: > or= 3.5 Finger Breadths Mallampati Class: II Neck normal visual inspection and trachea midline; neck extension not limited Respiratory normal respiratory effort Auscultation: lungs clear to auscultation bilaterally Cardiovascular Rate/Rhythm: regular rate and regular rhythm Heart Sounds: no murmur Musculoskeletal Spine: normal cervical ROM Extremities: full ROM of extremities Neurologic moves all extremities Psychiatric Orientation: alert and oriented x 3 Testing Laboratory Results 12/29/24 06:12 12/29/24 06:12 PT 11.1 Seconds (9.0-12.0) 12/29/24 06:12 INR 1.1 (0.9-1.1) 12/29/24 06:12 Blood Type A Positive 12/28/24 16:33 Antibody Screen NEGATIVE 12/28/24 16:33 12/29/24 12/28/24 12/28/24 05:54 23:58 20:31 POC Glucose 95 114 H 115 H Electrocardiogram Date: 12/28/24 Findings: + NSR @ (69bpm) Echocardiogram Date: 09/11/23 EF: 55-60% LV Function: normal RWMA: + none mild-mod MR, mild MVP
[2024-12-28] MEDS: HYDROmorphone INJ 1 MG/ML SYRINGE IV PRN (15:04)
[2024-12-28] MEDS: INSULIN ASPART PER UNIT CHARGE SC SCH (16:50)
[2024-12-28] MEDS ORDERED: LACTATED RINGER'S 1,000 ML IV SCH (18:06)
[2024-12-28] MEDS: ACETAMINOPHEN 1,000 MG/100 ML VIAL IV PRN (20:30)
[2024-12-28] MEDS ORDERED: Nursing to Pharmacy Communication SCH (23:45)
[2024-12-29] MEDS ORDERED: LACTATED RINGER'S 1,000 ML IV SCH
[2024-12-29] MEDS: INSULIN ASPART PER UNIT CHARGE SC SCH ×2 (00:09→16:49)
[2024-12-29] MEDS: LEVOTHYROXINE SODIUM 88 MCG TABLET PO SCH (06:20)
[2024-12-29 06:43] LABS: Hematocrit (blood only) 24.4 % (37.0-47.0); Hemoglobin 8.1 g/dl (12.0-16.0); Immature Granulocytes # (auto) 0.01 K/uL (0.01-0.20); Immature Granulocytes % (auto) 0.2 %; Mean Corpuscular Hemoglobin 34.2 pg (25.0-34.0); Mean Corpuscular Volume 103.0 fL (80.0-100.0); Platelet Count 137 K/uL (130-400); RDW Standard Deviation 49.5 fL (36.4-46.3); Red Blood Count 2.37 M/uL (4.20-5.40); White Blood Count 6.12 K/ul (4.8-10.8)
[2024-12-29] MEDS ORDERED: PROPOFOL IV EMULSION 10 MG/ML 20 ML VIAL IV ONE ×2 (07:01→09:47)
[2024-12-29] MEDS ORDERED: ONDANSETRON INJ 2 MG/ML 2 ML VIAL ONE (07:01)
[2024-12-29] MEDS ORDERED: LIDOCAINE 2% 2 ML VIAL/AMP(20MG/ML) INFIL ONE (07:01)
[2024-12-29 07:03] LABS: INR 1.1 (0.9-1.1); Prothrombin Time 11.1 Seconds (9.0-12.0)
--- NOTE | 2024-12-29 07:04 | Electrocardiogram Report ---
Test Reason : Blood Pressure : */* mmHG Vent. Rate : 69 BPM Atrial Rate : 69 BPM P-R Int : 170 ms QRS Dur : 70 ms QT Int : 422 ms P-R-T Axes : 42 28 32 degrees QTcB Int : 452 ms Normal sinus rhythm Normal ECG When compared with ECG of 09-Feb-2015 18:12, No significant change was found Confirmed by Huang Chin ([id number]) on 12/29/2024 7:03:33 AM Referred By: REFERRED SELF Confirmed By: Huang Chin
[2024-12-29 07:05] LABS: Anion Gap 4.0 (3-11); Blood Urea Nitrogen 15.0 mg/dl (6-23); Calcium 8.2 mg/dl (8.6-10.3); Carbon Dioxide 31.0 mmol/L (21-32); Chloride 100.0 mmol/L (98-107); Creatinine Clr Calc Pharmacy 90.3 ml/min; Glucose 92.0 mg/dl (70-99(Fasting)); Potassium 3.9 mmol/L (3.5-5.1); Sodium 135.0 mmol/L (136-145)
[2024-12-29] MEDS ORDERED: SODIUM CHLORIDE 0.9% 100 ML IV PRN ×2 (07:15→16:49)
--- NOTE | 2024-12-29 07:26 | Orthopedic Consultation ---
Date of Service December 29, 2024 Assessment & Plan (1) Closed fracture of left distal femur: 79-year-old female admitted to the hospital for left closed distal femur fracture. The plan is to take her to the OR this morning for open reduction and internal fixation of the left femur. History of Present Illness Reason for Consultation: Left femur fracture Requesting Physician: . Attending Physician: Tyler Li MD Josseline is an 79-year-old female with past medical history of hypothyroidism, benign tremor, depression/anxiety, mitral regurgitation, IBS, hyperlipidemia, stress incontinence. She was working in her barn clearing hay when her right leg fell through a hole in her barn floor which caused her left leg to bend backwards behind her. She states she heard an audible snap of her femur. She laid there for approximately 10 minutes and her sons came to help her up. She cannot bear weight and had intense pain in the left leg. Her boys brought her to the emergency room where was determined that she had a distal femur fracture. She has a history of left total knee arthroplasty conducted by Dr. Mary Rivas with [facility]. On x-ray it appears that the prosthesis is still intact and the extent of the fracture is superior to the femoral implant. Allergies Allergy/AdvReac Type Severity Reaction Status Date / Time Sulfa (Sulfonamide Allergy Intermediate HIVES Verified 06/13/24 10:24 Antibiotics) Home Medications Medication Instructions Recorded Confirmed Type calcium 600 mg (as 1 cap PO QAM 01/06/22 12/28/24 History carbonate)-vitamin D3 5 mcg (200 unit) capsule (Calcium 600 + D(3)) cyanocobalamin (vitamin B-12) 1,000 mcg PO QAM 01/06/22 12/28/24 History 1,000 mcg tablet (Vitamin B-12) multivitamin 1 tab PO QAM 01/06/22 12/28/24 History aspirin 81 mg tablet,delayed 81 mg PO 3XWK 08/31/23 12/28/24 History release venlafaxine 75 mg capsule,extended 75 mg PO DAILY #90 caps 02/01/24 12/28/24 Rx release 24 hr atorvastatin 80 mg tablet 80 mg PO HS #90 tabs 02/07/24 12/28/24 Rx levothyroxine 88 mcg tablet 88 mcg PO QAM #90 tabs 11/25/24 10/11/25 Rx metformin 500 mg tablet,extended 500 mg PO BID #180 tabs 03/11/24 12/28/24 Rx release 24 hr Past Med/Surg History Problem List Fracture of femur (Acute) Closed fracture of left distal femur Paresthesias (Acute) Normocytic anemia (Acute) Leukopenia (Acute) Alopecia (Acute) Medical History Benign familial tremor Cervical spondylosis without myelopathy Chronic gastritis Diverticulosis Hypothyroidism, unspecified (05/26/12) Hypercholesterolemia Prediabetes metformin daily Solitary pulmonary nodule Depression with anxiety History of colon polyps Osteoporosis Mitral regurgitation Stress incontinence Irritable bowel syndrome Nausea and vomiting after administration of anesthetic agent Depression Tubular adenoma of colon Internal hemorrhoids Surgical History History of esophagogastroduodenoscopy (EGD) last 2014 @ [facility] History of tooth extraction History of total knee arthroplasty left History of arthroscopy of left shoulder rotator cuff repair History of colonoscopy last 2021 @ [facility] History of tubal ligation Family History Father Leukemia Stroke syndrome Mother Diabetes Hypertension Grandmother Colon cancer Other No family history of adverse response to anesthesia Prostate cancer Denies family history of Ovarian cancer Myocardial infarction Breast cancer Social History Smoking Status: Never smoker Second Hand Exposure: No; Do You Dip or Chew Tobacco: No; Hx Alcohol Use: No Hx Substance Use: No Preferred Language: Sami Communication Ability: Effective Visual Impairment: Limited Hearing Ability: Normal 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 Physical Exam 79-year-old female reclining in hospital bed in great spirits. Left leg shows significant soft tissue swelling around the distal thigh and knee. No notable ecchymosis. Patient cannot extend or flex the knee due to pain. Left lower extremity is neurovascularly intact. Results & Data Results & Data Laboratory Results 12/29/24 12/29/24 12/28/24 06:12 05:54 23:58 WBC 6.12 RBC 2.37 L Hgb 8.1 L D Hct 24.4 L MCV 103.0 H MCH 34.2 H MCHC 33.2 RDW Std Deviation 49.5 H RDW Coeff of Mayda 13.2 Plt Count 137 MPV 10.0 Immature Gran % (Auto) 0.2 Neut % (Auto) 56.9 Lymph % (Auto) 27.6 Sherman % (Auto) 11.9 Eos % (Auto) 2.9 Baso % (Auto) 0.5 Neut # (Auto) 3.48 Lymph # (Auto) 1.69 Sherman # (Auto) 0.73 H Eos # (Auto) 0.18 Baso # (Auto) 0.03 Immature Gran # (Auto) 0.01 PT 11.1 INR 1.1 Sodium 135 L Potassium 3.9 Chloride 100 Carbon Dioxide 31 Anion Gap 4 BUN 15 Creatinine 0.48 L Est Cr Clr Drug Dosing 90.3 eGFR 95.10 BUN/Creatinine Ratio 31.3 H Glucose 92 POC Glucose 95 114 H Calcium 8.2 L Total Bilirubin AST ALT Alkaline Phosphatase Total Protein Albumin Globulin Albumin/Globulin Ratio Blood Type Antibody Screen 12/28/24 12/28/24 12/28/24 20:31 16:33 16:26 WBC RBC Hgb Hct MCV MCH MCHC RDW Std Deviation RDW Coeff of Mayda Plt Count MPV Immature Gran % (Auto) Neut % (Auto) Lymph % (Auto) Sherman % (Auto) Eos % (Auto) Baso % (Auto) Neut # (Auto) Lymph # (Auto) Sherman # (Auto) Eos # (Auto) Baso # (Auto) Immature Gran # (Auto) PT INR Sodium Potassium Chloride Carbon Dioxide Anion Gap BUN Creatinine Est Cr Clr Drug Dosing eGFR BUN/Creatinine Ratio Glucose POC Glucose 115 H 99 Calcium Total Bilirubin AST ALT Alkaline Phosphatase Total Protein Albumin Globulin Albumin/Globulin Ratio Blood Type A Positive Antibody Screen NEGATIVE 12/28/24 12:15 WBC 10.40 RBC 3.63 L Hgb 12.0 Hct 36.5 L MCV 100.6 H MCH 33.1 MCHC 32.9 RDW Std Deviation 48.8 H RDW Coeff of Mayda 13.2 Plt Count 180 MPV 10.0 Immature Gran % (Auto) 0.3 Neut % (Auto) 79.3 Lymph % (Auto) 11.4 Sherman % (Auto) 6.3 Eos % (Auto) 2.0 Baso % (Auto) 0.7 Neut # (Auto) 8.24 H Lymph # (Auto) 1.19 L Sherman # (Auto) 0.66 H Eos # (Auto) 0.21 Baso # (Auto) 0.07 Immature Gran # (Auto) 0.03 PT INR Sodium 137 Potassium 4.0 Chloride 102 Carbon Dioxide 29 Anion Gap 6 BUN 19 Creatinine 0.69 Est Cr Clr Drug Dosing 62.9 eGFR 87.13 BUN/Creatinine Ratio 27.5 H Glucose 113 H POC Glucose Calcium 9.6 Total Bilirubin 0.7 AST 25 ALT 19 Alkaline Phosphatase 73 Total Protein 6.5 Albumin 3.9 Globulin 2.6 Albumin/Globulin Ratio 1.5 Blood Type Antibody Screen Diagnostic Findings Knee X-Ray 12/28/24 11:45 Clinical History: Injury 5 views of the left knee are submitted for review. Findings: There is an acute comminuted fracture of the distal left femoral shaft and metaphysis with 45° of apex anterior angulation as well as displacement of fracture fragments. There is a left knee total arthroplasty in expected position. There is no definite sign of infection or loosening. No other osseous abnormality is identified. There are no radiopaque foreign bodies. Impression: 1. Acute comminuted fracture of the distal left femur with displacement and angulation 2. Left knee replacement ACT 112: Positive. There are findings on this exam that require communication between the performing entity and the patient following Patient Test Result Information Act ([place] ACT 112) guidelines. Electronically signed by Heron Barriga 12-28-2024 12:35 PM PG Care Time/CCT Total # of Minutes Spent Total Time Spent with Patient: Total time spent is greater than 50% in coordination of care (as documented) at patient's floor/unit and/or counseling patient: [place] [address] IN/OBS CONSULT LVL 5,80M (57 - DECISION FOR SURGERY) Patient Type New Medical Decision Making Moderate Complexity Diagnoses Other closed fracture of distal end of left femur, initial encounter S72.492A Encounter type: initial encounter Fracture morphology: other fracture (1) Closed fracture of left distal femur Encounter type: initial encounter Fracture morphology: other fracture Qualified Code(s): S72.492A - Other fracture of lower end of left femur, initial encounter for closed fracture
[2024-12-29] MEDS ORDERED: MIDAZOLAM HCL 1 MG/ML 2ML VIAL ONE (07:39)
[2024-12-29] MEDS ORDERED: BUPIVACAINE 0.5 % 5 MG/1 ML PF 10ML VIAL ONE (07:42)
[2024-12-29] MEDS ORDERED: ATROPINE SULFATE 0.1 MG/ML 10ML SYR IV PRN (07:54)
[2024-12-29] MEDS ORDERED: MEPERIDINE HCL 25 MG/ML CARP/VIAL IV PRN (07:54)
[2024-12-29] MEDS ORDERED: ONDANSETRON INJ 2 MG/ML 2 ML VIAL IV PRN ×2 (07:54→10:46)
[2024-12-29] MEDS ORDERED: HYDROmorphone INJ 1 MG/ML SYRINGE IV PRN (07:54)
--- NOTE | 2024-12-29 08:24 | History & Physical Bridge Note ---
Date of Service December 29, 2024 History & Physical Bridge Note I have examined the patient, reviewed the History & Physical and in the interval since the performance of the History & Physical I have noted the following changes of clinical significance: no changes noted
[2024-12-29] MEDS ORDERED: PHENYLEPHRINE 100MCG/ML 5ML SYR ONE (09:06)
[2024-12-29] MEDS ORDERED: PHENYLEPHRINE HCL 10 MG/ML VIAL ONE (09:14)
[2024-12-29] MEDS: TRANEXAMIC ACID / 0.7% NACL 1000MG/100ML BAG IV ONE ×2 (09:27→10:25)
[2024-12-29] MEDS ORDERED: MAGNESIUM HYDROXIDE SUSP 30 ML UDC PO PRN (10:46)
[2024-12-29] MEDS ORDERED: NALOXONE HCL 0.4 MG/1 ML VIAL/CARP IV PRN (10:46)
[2024-12-29] MEDS ORDERED: METOCLOPRAMIDE HCL INJ 5 MG/ML 2 ML VIAL IV PRN (10:46)
--- NOTE | 2024-12-29 10:51 | Operative Report ---
PG Post Operative Report Pre & Post Diagnosis Operation Date: 12/29/24 07:30 Pre-Op Diagnosis: Comminuted periprosthetic left distal femur fracture Post-Op Diagnosis: Comminuted periprosthetic left distal femur fracture I identified the patient and participated in the time-out.: Yes Procedure Operation Date: 12/29/24 07:30 Actual Procedures p Open Reduction Internal Fixation periprosthetic distal femur fracture (Left) - Abdiaziz Castellanos DO Surgeon Abdiaziz Castellanos DO Employment Specialist Parvez Alfonso PA-C Estimated Blood Loss 100 Findings Consistent with Post-Op Diagnosis Specimens none Description of Procedure On December 29, 2024 Josseline was brought in from her hospital room to the preoperative holding area. The operative extremity identified and signed. She was given a preoperative antibiotic and a spinal anesthetic. She was taken back the operating room and transferred to a operating table. She was given basic sedation. The left leg was then prepped and draped sterile fashion. A timeout was done. The patient and the operative extremity was properly identified. A longitudinal incision was made over the lateral distal femur. Dissection was taken down through the fascia. The IT band was split. The vastus lateralis was elevated anteriorly. The fracture was identified. There was multiple fracture fragments. There was 2 larger fragments more proximally. These fragments were reduced with the clamp. 2 Arthrex fiber tape cerclage sutures were placed to hold the large fracture fragments reduced. More distally, there was a lot of comminution. Traction was pulled on the leg to line up the distal fragments. A Synthes 10 hole distal fibular locking plate was then placed. A single locking screw was placed distally and a compression screw was placed proximally. Fluoroscopic images were used to align up the plate and obtain near-anatomic alignment of the fracture. Once I was happy with the placement of plate and the alignment of the fracture, the remainder of the distal and proximal locking screws were then placed. Screw lengths were checked on fluoroscopy. The fracture site was then irrigated. Final images showed good alignment of the hardware and the fracture. The IT band was then closed with #1 Vicryl. Skin was then closed with 2-0 Vicryl and mary. She was then placed in a soft comp ressive dressing in the immobilizer. She was then taken to the postanesthesia care unit in stable condition. She tolerated the procedure well. Parvez Alfonso PA-C, was present for the entire procedure. He was critical for patient positioning, prepping, draping, retraction exposure, wound closure and application of sterile dressing. I attest to the content of the Intraoperative Record and any orders documented therein. Any exceptions are noted below.
--- NOTE | 2024-12-29 11:01 | Fluoroscopy Report ---
HISTORY: Left distal femur fracture. TECHNIQUE: Intraoperative fluoroscopic images. 4 images are provided. Cumulative dose is 3.49 mGy. Fluoroscopy time is 50.2 seconds. COMPARISON: Right knee radiographs dated 12/28/2024. FINDINGS: Intraoperative fluoroscopic images obtained during internal fixation of a left distal femur periprosthetic fracture utilizing a lateral plate and screw construct IMPRESSION: Intraoperative fluoroscopic images as detailed above. Please see final procedure report for further details. Electronically signed by Ajit Ribera 12-29-2024 11:01 AM
--- NOTE | 2024-12-29 12:08 | Anesthesiology Progress Note ---
Date of Service December 29, 2024 Anesthesia Post Procedure Vital Signs Vital Signs: Temp Pulse Pulse Pulse Resp BP BP 12/29/24 12:00 70 13 112/49 L 12/29/24 11:50 68 12 115/55 L 12/29/24 11:40 36.7 C 72 13 94/71 L 12/29/24 11:30 72 14 125/57 L 12/29/24 11:20 69 13 97/51 L 12/29/24 11:10 66 12 106/57 L 12/29/24 11:00 73 15 102/55 L 12/29/24 10:50 36.2 C L 74 12 100/54 L 12/29/24 07:00 36.4 C L 79 18 102/65 12/29/24 03:07 36.6 C 73 18 101/66 12/28/24 22:57 36.4 C L 76 18 100/63 12/28/24 18:07 36.8 C 67 18 117/69 12/28/24 16:39 74 14 12/28/24 16:31 75 12/28/24 16:03 75 13 12/28/24 16:00 123/61 12/28/24 15:48 75 15 12/28/24 15:45 79 12 12/28/24 15:30 92 H 30 H 12/28/24 15:15 84 18 12/28/24 15:01 112/81 12/28/24 15:01 112/81 12/28/24 15:00 74 20 12/28/24 14:45 72 22 12/28/24 14:30 81 24 12/28/24 14:18 82 26 H 12/28/24 14:09 72 19 12/28/24 14:00 152/86 H 12/28/24 14:00 152/86 H 12/28/24 13:50 130/76 12/28/24 13:50 75 20 130/76 12/28/24 13:39 79 16 12/28/24 13:30 67 19 12/28/24 13:06 69 18 12/28/24 13:00 138/79 12/28/24 12:38 12/28/24 12:35 69 12/28/24 12:33 69 28 H Pulse Ox O2 Del Method O2 Flow Rate 12/29/24 12:00 97 Room Air 12/29/24 11:50 97 Room Air 12/29/24 11:40 98 Room Air 12/29/24 11:30 96 Room Air 12/29/24 11:20 98 Room Air 12/29/24 11:10 99 Room Air 12/29/24 11:00 93 Room Air 12/29/24 10:50 97 Oxymask 9 12/29/24 07:00 99 Room Air 3 12/29/24 03:07 98 Nasal Cannula 3 12/28/24 22:57 96 Nasal Cannula 3 12/28/24 18:07 92 Room Air 12/28/24 16:39 99 Room Air 12/28/24 16:31 12/28/24 16:03 98 12/28/24 16:00 12/28/24 15:48 98 12/28/24 15:45 96 12/28/24 15:30 92 12/28/24 15:15 97 12/28/24 15:01 12/28/24 15:01 12/28/24 15:00 95 12/28/24 14:45 12/28/24 14:30 98 12/28/24 14:18 98 12/28/24 14:09 99 12/28/24 14:00 12/28/24 14:00 12/28/24 13:50 12/28/24 13:50 99 Room Air 12/28/24 13:39 98 12/28/24 13:30 98 12/28/24 13:06 97 12/28/24 13:00 12/28/24 12:38 88 L Room Air, Nasal Cannula 0 12/28/24 12:35 12/28/24 12:33 96 Pain Intensity Left Leg: Pain Intensity: 9 Transfer of Care Handoff Completed per policy Notes Mental Status: alert / awake / arousable Patient Amnestic to Procedure: Yes Nausea / Vomiting: adequately controlled Pain: adequately controlled Airway Patency, RR, SpO2: stable & adequate BP & HR: stable & adequate Hydration State: stable & adequate Neuraxial Anesthesia: was administered and sensory block is resolving Anesthetic Complications: no major complications apparent and Pt Satisfied with anesthetic care
[2024-12-29] MEDS ORDERED: Nursing to Pharmacy Communication SCH ×2 (12:45→13:15)
[2024-12-29] MEDS: SODIUM CHLORIDE 0.9% 1,000 ML IV SCH (12:56)
[2024-12-29] MEDS: CALCIUM 600MG + VIT D 400 IU TAB PO SCH (12:57)
[2024-12-29] MEDS: CYANOCOBALAMIN (B-12) 500 MCG TABLET PO SCH (12:57)
[2024-12-29] MEDS: MULTIVITAMIN TAB PO SCH (12:57)
[2024-12-29] MEDS: VENLAFAXINE HCL XR 75 MG CAPXR PO SCH ×2 (12:57→21:27)
[2024-12-29] MEDS: HYDROmorphone INJ 0.5 MG/0.5 ML SYR IV STA (15:44)
[2024-12-29 16:08] LABS: Hematocrit (blood only) 21.6 % (37.0-47.0); Hemoglobin 7.0 g/dl (12.0-16.0)
--- NOTE | 2024-12-29 16:37 | Hospitalist Progress Note ---
Date of Service December 29, 2024 Assessment & Plan (1) Closed fracture of left distal femur: Plan: Left distal femur fracture Occurred when her right leg fell through the barn floor, left leg was bent backwards and she heard a snap consistent with acute trauma leading to femoral fracture S/p Open reduction internal fixation 12/29/2024, uncomplicated, 100 cc blood loss Doing well at the bedside neurovascularly intact postop Tolerating regular diet, activity per ortho Acute blood loss anemia She is not tachycardic lightheaded or dizzy however she did have a drop in her hemoglobin from 12.0 down to 8.1 preop, and 7.0 postop She is slightly hypotensive, initially reported no sx however on reassessment endorses more fatigue than normal and pallor. NO chest pain, chest pressure, lightheadedness, dizziness, tachycardia, or presyncope. She is not macrocytic. B12 levels were elevated in the past. B12/folic acid supplementation added Iron panel and ferritin added. Initially was fatigued postoperatively and suspected due to anesthesia however has increased fatigue from normal compared to her baseline on afternoon reassessment and is slightly hypotensive although not tachycardic. - 1u prbc ordered. Check H&H 30 min postop. - She did not hit her abdomen or have any pelvic pain, she does not have seatbelt sign flank hematomas or abdominal tenderness on exam however drop from hemoglobin of 12-7 is substantial and disproportionate to that expected from her knee fracture alone. - CT-A/P noncon ordered to evaluate for abdominal free fluid. Contrast deferred postoperatively and with patient appearing slightly contracted and acutely anemi c due to concern for inducing contrast injury however free fluid is seen and her hemoglobin does not have an appropriate rise and will need to repeat as CTA to rule out active extravasation. Mitral regurgitation Chronic, no history of heart failure Hypothyroidism Continue Synthroid Hyperlipidemia Resume statin postop DVT PPx: SCDs, pharmacoppx held due to drop in hgb (2) Mitral regurgitation: Admission and Anticipated Discharge Date Admission Date: December 28, 2024 Subjective Seen postoperatively. Feels well, continues to have some pain in her left hip but better than prior. Answers questions appropriately. She reports she feels very sleepy and tired after the anesthesia otherwise no acute concerns. No fever chills or sweats. Sensation is intact in her feet. Is able to wiggle her toes without difficulty. Physical Exam Physical Exam: General: A&Ox3. NAD. Cooperative. HEENT: Atraumatic, normocephalic. PERLAA. Vision and hearing grossly intact Pulm: CTAB A&P. -wheezes, -rales, -rhonchi. Symmetrical chest rise. No increased work of breathing. No respiratory distress. Cardiac: RRR, +sm. Radial pulses intact and symmetrical. Abdominal: Nontender, nondistended, soft. BS present. Ext: Ankle dorsiflexion/plantarflexion intact bilaterally with 5/5 strength. Surgical dressing C/D/I with cooling wrap in place. Cap refill in the dorsal foot brisk less than 2 seconds bilaterally. Sensation intact in the feet bilaterally without deficit. Results & Data Results & Data Vital Signs (Past 12 Hours) Vital Signs Temp Pulse Pulse Resp BP Pulse Ox O2 Del Method 12/29/24 15:20 36.7 C 81 18 116/57 L 100 Nasal Cannula 12/29/24 14:55 36.7 C 79 16 101/62 98 Nasal Cannula 12/29/24 13:49 36.5 C 79 16 109/53 L 94 Room Air 12/29/24 12:56 36.5 C 81 18 100/63 90 Room Air 12/29/24 12:20 36.6 C 73 16 117/64 93 Room Air 12/29/24 12:00 70 13 112/49 L 97 Room Air 12/29/24 11:50 68 12 115/55 L 97 Room Air 12/29/24 11:40 36.7 C 72 13 94/71 L 98 Room Air 12/29/24 11:30 72 14 125/57 L 96 Room Air 12/29/24 11:20 69 13 97/51 L 98 Room Air 12/29/24 11:10 66 12 106/57 L 99 Room Air 12/29/24 11:00 73 15 102/55 L 93 Room Air 12/29/24 10:50 36.2 C L 74 12 100/54 L 97 Oxymask 12/29/24 07:00 36.4 C L 79 18 102/65 99 Room Air O2 Flow Rate 12/29/24 15:20 3 12/29/24 14:55 2 12/29/24 13:49 12/29/24 12:56 12/29/24 12:20 12/29/24 12:00 12/29/24 11:50 12/29/24 11:40 12/29/24 11:30 12/29/24 11:20 12/29/24 11:10 12/29/24 11:00 12/29/24 10:50 9 12/29/24 07:00 3 PG Care Time/CCT Total # of Minutes Spent Total Time Spent with Patient: Total time spent is greater than 50% in coordination of care (as documented) at patient's floor/unit and/or counseling patient: Coding Level of Care Code 11167 SUB INP/OBS CARE 3/50MIN Diagnoses Other closed fracture of distal end of left femur, initial encounter S72.492A Encounter type: initial encounter Fracture morphology: other fracture Mitral regurgitation I34.0 (1) Closed fracture of left distal femur Encounter type: initial encounter Fracture morphology: other fracture Qualified Code(s): S72.492A - Other fracture of lower end of left femur, initial encounter for closed fracture
[2024-12-29] MEDS: ONDANSETRON INJ 2 MG/ML 2 ML VIAL IV PRN (17:52)
[2024-12-29 18:33] LABS: Iron 49.0 mcg/dl (35-150); Total Iron Binding Cap Calc 218.0 mcg/dl (250-450); Transferrin 156.0 mg/dl (200-360); Transferrin (FE) Percent Satur 22.0 % (15-50)
[2024-12-29 18:54] LABS: Ferritin 158.9 ng/ml (8-388)
[2024-12-29 21:21] LABS: Hematocrit (blood only) 26.2 % (37.0-47.0); Hemoglobin 8.7 g/dl (12.0-16.0)
[2024-12-29] MEDS: ASPIRIN 81 MG ECTAB PO SCH (21:27)
[2024-12-29] MEDS: SENNA 8.6 MG TAB PO SCH (21:31)
[2024-12-29] MEDS: DOCUSATE SODIUM 100 MG CAP PO SCH (21:31)
--- NOTE | 2024-12-29 21:40 | CT Scan Report ---
Exam(s): CT ABDOMEN + PELVIS Without Contrast EXAM: CT Abdomen and Pelvis Without Intravenous Contrast CLINICAL HISTORY: Reason for exam: r/o abdominal free fluid, pelvic fxr/injury. TECHNIQUE: Axial computed tomography images of the abdomen and pelvis without intravenous contrast. CTDI is 16.48 mGy and DLP is 786.3 mGy-cm. Automated exposure control was utilized for the study. A dose lowering technique was utilized adhering to the principles of ALARA. COMPARISON: No relevant prior studies available. FINDINGS: ABDOMEN: Liver: Unremarkable. Gallbladder and bile ducts: Unremarkable. Pancreas: Unremarkable. Spleen: Unremarkable. Adrenals: Unremarkable. Kidneys and ureters: Unremarkable. No obstructing stones. No hydronephrosis. Stomach and bowel: Unremarkable. PELVIS: Appendix: No findings to suggest acute appendicitis. Bladder: Unremarkable. Reproductive: Unremarkable as visualized. ABDOMEN and PELVIS: Intraperitoneal space: Unremarkable. No free air. No significant fluid collection. Bones/joints: No acute fracture identified. Degenerative changes in the cervical spine. Soft tissues: Soft tissue edema in the upper left thigh and anterior to the left hip. Fluid within the greater trochanteric bursa. Vasculature: Unremarkable. Lymph nodes: Unremarkable. IMPRESSION: Soft tissue edema in the upper left thigh and anterior to the left hip. Fluid within the greater trochanteric bursa. No fracture. Electronically signed by: Jimmie Bishop MD 12/29/24 21:39 PM
[2024-12-30 00:50] LABS: Hematocrit (blood only) 26.6 % (37.0-47.0); Hemoglobin 8.7 g/dl (12.0-16.0)
[2024-12-30 07:50] LABS: Hematocrit (blood only) 23.1 % (37.0-47.0); Hemoglobin 7.7 g/dl (12.0-16.0); Mean Corpuscular Hemoglobin 32.5 pg (25.0-34.0); Mean Corpuscular Volume 97.5 fL (80.0-100.0); RDW Standard Deviation 50.3 fL (36.4-46.3); Red Blood Count 2.37 M/uL (4.20-5.40); White Blood Count 10.01 K/ul (4.8-10.8)
[2024-12-30 07:57] LABS: Anion Gap 2.0 (3-11); Blood Urea Nitrogen 7.0 mg/dl (6-23); Calcium 8.3 mg/dl (8.6-10.3); Carbon Dioxide 31.0 mmol/L (21-32); Chloride 98.0 mmol/L (98-107); Creatinine Clr Calc Pharmacy 83.3 ml/min; Glucose 141.0 mg/dl (70-99(Fasting)); Potassium 4.1 mmol/L (3.5-5.1); Sodium 131.0 mmol/L (136-145)
[2024-12-30 08:01] LABS: Immature Granulocytes # (auto) 0.04 K/uL (0.01-0.20); Immature Granulocytes % (auto) 0.4 %; Platelet Count 97 K/uL (130-400); Polychromasia 1+
[2024-12-30] MEDS ORDERED: MULTIVITAMIN TAB PO SCH (09:00)
[2024-12-30] MEDS ORDERED: SODIUM CHLORIDE 0.9% 100 ML IV PRN (09:12)
--- NOTE | 2024-12-30 10:56 | Orthopedic Progress Note ---
Date of Service December 30, 2024 Assessment & Plan (1) Closed fracture of left distal femur: * Continue Current Treatment * S/p ORIF L distal femur fx * Weight bearing status: NWB * Maintain knee immobilizer * Daily treatment: Physical Therapy/ Occupational Therapy per protocol * Pain control * Continue to monitor for ABLA * DVT prophylaxis, ok to resume from ortho standpoint * Disposition: Rehab * Office/hospital f/u 2 weeks for progress check and staple/suture removal * Remainder care per primary team * Stable for discharge from ortho standpoint, further planning per primary team Subjective . Active Problems: S/p ORIF L distal femur POD 1 79 y/o female s/p ORIF L distal femur. Doing well overall, pain managed and improved function. Denies fever/chills, chest pain/SOB, nausea/vomiting. Otherwise no complaints. Review of Systems All systems reviewed & are unremarkable except as noted in HPI & below. Physical Exam . * General: Alert and oriented, no acute distress * Constitutional: well-developed, well-nourished. * Respiratory: Normal respiratory effort, no distress * Gastrointestinal: No tenderness to palpation, no rigidity or guarding. * Skin: No rash or lesion. * Neurologic: Grossly normal * Musculoskeletal: Knee immobilizer intact. Left knee surgical dressing CDI, not removed for exam. Otherwise no obvious deformity or overlying skin changes RLE. Diffuse TTP distal thigh and knee region. Otherwise no specific tenderness of proximal thigh, lower leg, foot/ankle. Knee ROM not assessed. AROM foot/ankle intact. Sensation intact plantar/dorsal foot. Brisk capillary refill. Results & Data Results & Data Laboratory Results . Diagnostic Findings . Femur X-Ray 12/29/24 00:00 HISTORY: Left distal femur fracture. TECHNIQUE: Intraoperative fluoroscopic images. 4 images are provided. Cumulative dose is 3.49 mGy. Fluoroscopy time is 50.2 seconds. COMPARISON: Right knee radiographs dated 12/28/2024. FINDINGS: Intraoperative fluoroscopic images obtained during internal fixation of a left distal femur periprosthetic fracture utilizing a lateral plate and screw construct IMPRESSION: Intraoperative fluoroscopic images as detailed above. Please see final procedure report for further details. Electronically signed by Ajit Ribera 12-29-2024 11:01 AM Abdomen/Pelvis CT 12/29/24 17:48 Exam(s): CT ABDOMEN + PELVIS Without Contrast EXAM: CT Abdomen and Pelvis Without Intravenous Contrast CLINICAL HISTORY: Reason for exam: r/o abdominal free fluid, pelvic fxr/injury. TECHNIQUE: Axial computed tomography images of the abdomen and pelvis without intravenous contrast. CTDI is 16.48 mGy and DLP is 786.3 mGy-cm. Automated exposure control was utilized for the study. A dose lowering technique was utilized adhering to the principles of ALARA. COMPARISON: No relevant prior studies available. FINDINGS: ABDOMEN: Liver: Unremarkable. Gallbladder and bile ducts: Unremarkable. Pancreas: Unremarkable. Spleen: Unremarkable. Adrenals: Unremarkable. Kidneys and ureters: Unremarkable. No obstructing stones. No hydronephrosis. Stomach and bowel: Unremarkable. PELVIS: Appendix: No findings to suggest acute appendicitis. Bladder: Unremarkable. Reproductive: Unremarkable as visualized. ABDOMEN and PELVIS: Intraperitoneal space: Unremarkable. No free air. No significant fluid collection. Bones/joints: No acute fracture identified. Degenerative changes in the cervical spine. Soft tissues: Soft tissue edema in the upper left thigh and anterior to the left hip. Fluid within the greater trochanteric bursa. Vasculature: Unremarkable. Lymph nodes: Unremarkable. IMPRESSION: Soft tissue edema in the upper left thigh and anterior to the left hip. Fluid within the greater trochanteric bursa. No fracture. Electronically signed by: Jimmie Bishop MD 12/29/24 21:39 PM PG Care Time/CCT Total # of Minutes Spent Total Time Spent with Patient: Total time spent is greater than 50% in coordination of care (as documented) at patient's floor/unit and/or counseling patient: Coding Level of Care Code 65948 Post Operative Follow-Up Diagnoses Other closed fracture of distal end of left femur, initial encounter S72.492A Encounter type: initial encounter Fracture morphology: other fracture (1) Closed fracture of left distal femur Encounter type: initial encounter Fracture morphology: other fracture Qualified Code(s): S72.492A - Other fracture of lower end of left femur, initial encounter for closed fracture
--- NOTE | 2024-12-30 13:54 | Hospitalist Progress Note ---
Date of Service December 30, 2024 Assessment & Plan (1) Closed fracture of left distal femur: Plan: ##Left distal femur fracture Occurred when her right leg fell through the barn floor, left leg was bent backwards and she heard a snap consistent with acute trauma leading to femoral fracture S/p Open reduction internal fixation 12/29/2024, uncomplicated, 100ml EBL Tolerating regular diet (small emesis this am), add on PPI, activity per ortho ##Acute blood loss anemia HBG trends 8.1>7.0 (1 unit PRBCs)>8.7>7.7 -without hemodynamic instability -No s/s of active blood loss -Fe studies with normal transferrin % sat, normal Fe, normal ferritin -started on B12 supp -CTAP 12/29/24: Soft tissue edema in the upper left thigh and anterior to the left hip. Fluid within the greater trochanteric bursa. No identified hematoma. -tranfuse 1 unit PRBCs -H/H at 1500 -trend CBC in am ##hyponatremia -Na 131 possible etiology r/t IVF administration secondary to kiah-operative fluids -without confusion, irritability, muscle weakness, ADAM -trend in am, if persistent add on serum osmo, urine osmo in am ##Mitral regurgitation Chronic, no history of heart failure ##Hypothyroidism Continue Synthroid ##Hyperlipidemia -statin held d/t surgical status -start atorvastatin this evening DVT PPx: SCDs, no pharm proph d/t decreased H/H (2) Mitral regurgitation: Admission and Anticipated Discharge Date Admission Date: December 28, 2024 Subjective Sitting up in chair this morning. Awake, alert and oriented. Her left leg is extended and elevated with an ice pack and knee immobilizer present. States he did have an emesis this morning. Her pain is tolerable with IV medication administration. Tolerating drinking liquids and eating small amounts of food. Denies CP, SOB. Denies abdominal pain. Paredes draining clear, yellow urine. She denies striking her abdominal area or trauma to her lower back with her mechanism of fall prior to arrival. Review of Systems Review of Systems: All systems reviewed & are unremarkable except as noted in Subjective Physical Exam Physical Exam: GENERAL APPEARANCE: A&O. Sitting comfortably in chair. NAD. SKIN: Normal color without rashes or lesions. Normal turgor. HEENT: Head AT/NC. Buccal mucosa is moist and pink. NECK: No jugular venous distention. No thyroid enlargement. There is no lymphadenopathy. HEART: RRR with soft, S1 murmur. No gallop or rub. LUNGS: Normal inspiratory effort. CTA without w/r/r. ABDOMEN: No guarding or rigidity. Normoactive BS in all four quadrants. Abdomen soft and NT. EXTREMITIES: No edema, No peripheral cyanosis. Ankle dorsiflexion/plantarflexion intact bilaterally with 5/5 strength. Surgical dressing not visualized due to leg immobilizer. Sensation intact to left foot. Able to wiggle toes. Cap refill <2sec to left foot. +PT/DP to left foot. Neuro: CN 2-12 grossly intact. No focal neuro deficits Results & Data Results & Data Vital Signs (Past 12 Hours) Vital Signs Temp Pulse Pulse Pulse Resp BP BP 12/30/24 12:53 36.5 C 88 16 130/77 12/30/24 11:07 36.3 C L 85 16 121/60 12/30/24 10:52 36.8 C 80 16 128/72 12/30/24 10:36 36.8 C 78 16 131/71 12/30/24 08:00 12/30/24 08:00 12/30/24 07:17 36.4 C L 91 H 16 110/65 12/30/24 03:00 36.8 C 88 112/69 Pulse Ox O2 Del Method O2 Del Method O2 Flow Rate O2 Flow Rate 12/30/24 12:53 95 12/30/24 11:07 95 12/30/24 10:52 97 12/30/24 10:36 97 12/30/24 08:00 Nasal Cannula 12/30/24 08:00 Nasal Cannula 2 12/30/24 07:17 96 Nasal Cannula 2 12/30/24 03:00 98 Nasal Cannula 2 Laboratory Results labs reviewed PG Care Time/CCT Total # of Minutes Spent Total Time Spent with Patient: Total time spent is greater than 50% in coordination of care (as documented) at patient's floor/unit and/or counseling patient: Coding Level of Care Code 21765 SUB INP/OBS CARE 3/50MIN Diagnoses Other closed fracture of distal end of left femur, initial encounter S72.492A Encounter type: initial encounter Fracture morphology: other fracture Mitral regurgitation I34.0 (1) Closed fracture of left distal femur Encounter type: initial encounter Fracture morphology: other fracture Qualified Code(s): S72.492A - Other fracture of lower end of left femur, initial encounter for closed fracture
[2024-12-30 15:21] LABS: Hematocrit (blood only) 27.8 % (37.0-47.0); Hemoglobin 9.5 g/dl (12.0-16.0)
[2024-12-30] MEDS: ATORVASTATIN 40 MG TAB PO SCH (20:48)
[2024-12-31 08:18] LABS: Anion Gap 3.0 (3-11); Blood Urea Nitrogen 8.0 mg/dl (6-23); Calcium 8.3 mg/dl (8.6-10.3); Carbon Dioxide 31.0 mmol/L (21-32); Chloride 96.0 mmol/L (98-107); Creatinine Clr Calc Pharmacy 103.2 ml/min; Glucose 121.0 mg/dl (70-99(Fasting)); Potassium 3.7 mmol/L (3.5-5.1); Sodium 130.0 mmol/L (136-145)
[2024-12-31 08:19] LABS: Hematocrit (blood only) 25.2 % (37.0-47.0); Hemoglobin 8.7 g/dl (12.0-16.0); Immature Granulocytes # (auto) 0.06 K/uL (0.01-0.20); Immature Granulocytes % (auto) 0.6 %; Mean Corpuscular Hemoglobin 32.3 pg (25.0-34.0); Mean Corpuscular Volume 93.7 fL (80.0-100.0); Platelet Count 101 K/uL (130-400); RDW Standard Deviation 54.1 fL (36.4-46.3); Red Blood Count 2.69 M/uL (4.20-5.40); White Blood Count 10.83 K/ul (4.8-10.8)
--- NOTE | 2024-12-31 10:27 | Orthopedic Progress Note ---
Date of Service December 31, 2024 Assessment & Plan (1) Closed fracture of left distal femur: * Continue Current Treatment * S/p ORIF L distal femur fx * Weight bearing status: NWB * Maintain knee immobilizer * Daily treatment: Physical Therapy/ Occupational Therapy per protocol * Pain control * Continue to monitor for ABLA * DVT prophylaxis, ok to resume from ortho standpoint * Disposition: Rehab * Office/hospital f/u 2 weeks for progress check and staple/suture removal * Remainder care per primary team * Stable for discharge from ortho standpoint, further planning per primary team Subjective Active Problems: S/p ORIF L distal femur POD 2 79 y/o female s/p ORIF L distal femur. Doing well overall, pain managed and improved function. Denies fever/chills, chest pain/SOB, nausea/vomiting. Otherwise no complaints. Review of Systems All systems reviewed & are unremarkable except as noted in HPI & below. Physical Exam * Musculoskeletal: Knee immobilizer intact. Left knee surgical dressing CDI, not removed for exam. Otherwise no obvious deformity or overlying skin changes RLE. Diffuse TTP distal thigh and knee region. Otherwise no specific tenderness of proximal thigh, lower leg, foot/ankle. Knee ROM not assessed. AROM foot/ankle intact. Sensation intact plantar/dorsal foot. Brisk capillary refill. Results & Data Results & Data Laboratory Results . Diagnostic Findings . PG Care Time/CCT Total # of Minutes Spent Total Time Spent with Patient: Total time spent is greater than 50% in coordination of care (as documented) at patient's floor/unit and/or counseling patient: Coding Level of Care Code 37674 Post Operative Follow-Up Diagnoses Other closed fracture of distal end of left femur, initial encounter S72.492A Encounter type: initial encounter Fracture morphology: other fracture (1) Closed fracture of left distal femur Encounter type: initial encounter Fracture morphology: other fracture Qualified Code(s): S72.492A - Other fracture of lower end of left femur, initial encounter for closed fracture
[2024-12-31 10:30] LABS: Appearance Urine Clear (Clear); Bacteria Urine Automated None Seen (None Seen); Cast Urine Automated 0-2 /lpf (0-2); Epithelial Cell Urine Auto 0-2 /hpf (0-2); Glucose Urine UA Negative (Negative); WBC Urine Automated 0-5 /hpf (0-5)
--- NOTE | 2024-12-31 14:26 | Hospitalist Progress Note ---
Date of Service December 31, 2024 Assessment & Plan (1) Closed fracture of left distal femur: Plan: ##Left distal femur fracture Occurred when her right leg fell through the barn floor, left leg was bent backwards and she heard a snap consistent with acute trauma leading to femoral fracture S/p Open reduction internal fixation 12/29/2024, uncomplicated, 100ml EBL Tolerating regular diet, added on PPI, activity per ortho -IRF vs SNF upon d/c ##Acute blood loss anemia HBG trends 8.1>7.0 (1 unit PRBCs)>8.7>7.7 (1 unit PRBCs)>9.5>8.7 -without hemodynamic instability -No s/s of active blood loss -Fe studies with normal transferrin % sat, normal Fe, normal ferritin -started on B12 supp -CTAP 12/29/24: Soft tissue edema in the upper left thigh and anterior to the left hip. Fluid within the greater trochanteric bursa. No identified hematoma. -trend CBC in am ##hyponatremia -Na 130 possible etiology r/t IVF administration secondary to kiah-operative fluids -without confusion, irritability, muscle weakness, ADAM -serum osmo 275, urine Na 13 -fluid restriction -TSH in am -BMP in am ##Mitral regurgitation Chronic, no history of heart failure ##Hypothyroidism Continue Synthroid ##Hyperlipidemia -statin held d/t surgical status -start atorvastatin this evening DVT PPx: SCDs, no pharm proph d/t decreased H/H (2) Mitral regurgitation: Admission and Anticipated Discharge Date Admission Date: December 28, 2024 Subjective Sitting up in chair this morning. Awake, alert and oriented. Her left leg is extended and elevated. Immobilizer present to left leg. States her pain is mild. Has not had additional nausea or emesis since yesterday. Has been eating and drinking well. Reports she is willing to go to IRF or SNF if needed post discharge for continued rehabilitation. Review of Systems Review of Systems: All systems reviewed & are unremarkable except as noted in Subjective Physical Exam Physical Exam: GENERAL APPEARANCE : A&O. Sitting com fortably in chair. NAD. SKIN: Normal color without lesa hes or lesions. N ormal turgor. HEEN T: Head AT/NC. [place] mucosa is mois t and pink. NECK: No jugular venous distention. No thy roid enlargement. There is no lympha denopathy. HEART: RRR with soft, S1 murmur. No gallop or rub. LUNGS: No rmal inspiratory e ffort. CTA without w/r/r. ABDOMEN: N o guarding or rigi dity. Normoactive BS in all four torrey drants. Abdomen so ft and NT. EXTREMI TIES: No edema, No peripheral cyanos is. Ankle dorsifle xion/plantarflexio n intact bilateral ly with 5/5 streng th. Surgical dress ing not visualized due to leg immobi lizer. Sensation i ntact to left foot . Able to wiggle t oes. Cap refill <2 sec to left foot. +PT/DP to left keshawn t. Neuro: CN 2-12 grossly intact. N o focal neuro defi cits Results & Data Results & Data Vital Signs (Past 12 Hours) Vital Signs Temp Pulse Resp BP Pulse Ox O2 Del Method O2 Del Method 12/31/24 11:54 Room Air 12/31/24 07:29 36.8 C 90 16 123/75 95 Room Air Laboratory Results labs reviewed PG Care Time/CCT Total # of Minutes Spent Total Time Spent with Patient: Total time spent is greater than 50% in coordination of care (as documented) at patient's floor/unit and/or counseling patient: Coding Level of Care Code 70905 SUB INP/OBS CARE 3/50MIN Diagnoses Other closed fracture of distal end of left femur, initial encounter S72.492A Encounter type: initial encounter Fracture morphology: other fracture Mitral regurgitation I34.0 (1) Closed fracture of left distal femur Encounter type: initial encounter Fracture morphology: other fracture Qualified Code(s): S72.492A - Other fracture of lower end of left femur, initial encounter for closed fracture
[2024-12-31] MEDS: ACETAMINOPHEN 500 MG TAB PO SCH (22:34)
[2025-01-01 07:59] LABS: Hematocrit (blood only) 25.4 % (37.0-47.0); Hemoglobin 8.4 g/dl (12.0-16.0); Immature Granulocytes # (auto) 0.04 K/uL (0.01-0.20); Immature Granulocytes % (auto) 0.5 %; Mean Corpuscular Hemoglobin 31.1 pg (25.0-34.0); Mean Corpuscular Volume 94.1 fL (80.0-100.0); Platelet Count 116 K/uL (130-400); RDW Standard Deviation 51.8 fL (36.4-46.3); Red Blood Count 2.70 M/uL (4.20-5.40); White Blood Count 8.18 K/ul (4.8-10.8)
[2025-01-01 08:20] LABS: Anion Gap 3.0 (3-11); Blood Urea Nitrogen 10.0 mg/dl (6-23); Calcium 8.1 mg/dl (8.6-10.3); Carbon Dioxide 32.0 mmol/L (21-32); Chloride 100.0 mmol/L (98-107); Creatinine Clr Calc Pharmacy 120.3 ml/min; Glucose 110.0 mg/dl (70-99(Fasting)); Potassium 3.9 mmol/L (3.5-5.1); Sodium 135.0 mmol/L (136-145)
[2025-01-01 08:36] LABS: Thyroid Stimulating Hormone 3.45 uIu/ml (0.300-4.500)
--- NOTE | 2025-01-01 11:10 | Orthopedic Progress Note ---
Date of Service January 01, 2025 Assessment & Plan (1) Closed fracture of left distal femur: * Continue Current Treatment * S/p ORIF L distal femur fx * Weight bearing status: NWB * Maintain knee immobilizer * Daily treatment: Physical Therapy/ Occupational Therapy per protocol * Pain control * Continue to monitor for ABLA * DVT prophylaxis, ok to resume from ortho standpoint * Disposition: Rehab * Office/hospital f/u 2 weeks for progress check and staple/suture removal * Remainder care per primary team * Stable for discharge from ortho standpoint, further planning per primary team Subjective Active Problems: S/p ORIF L distal femur POD 3 79 y/o female s/p ORIF L distal femur. Doing well overall, pain managed and improved function. Denies fever/chills, chest pain/SOB, nausea/vomiting. Otherwise no complaints. Review of Systems All systems reviewed & are unremarkable except as noted in HPI & below. Physical Exam * Musculoskeletal: Knee immobilizer intact. Left knee surgical dressing CDI, not removed for exam. Otherwise no obvious deformity or overlying skin changes RLE. Diffuse TTP distal thigh and knee region. Otherwise no specific tenderness of proximal thigh, lower leg, foot/ankle. Knee ROM not assessed. AROM foot/ankle intact. Sensation intact plantar/dorsal foot. Brisk capillary refill. Results & Data Results & Data Laboratory Results . Diagnostic Findings . PG Care Time/CCT Total # of Minutes Spent Total Time Spent with Patient: Total time spent is greater than 50% in coordination of care (as documented) at patient's floor/unit and/or counseling patient: Coding Level of Care Code 23069 Post Operative Follow-Up Diagnoses Other closed fracture of distal end of left femur, initial encounter S72.492A Encounter type: initial encounter Fracture morphology: other fracture (1) Closed fracture of left distal femur Encounter type: initial encounter Fracture morphology: other fracture Qualified Code(s): S72.492A - Other fracture of lower end of left femur, initial encounter for closed fracture
--- NOTE | 2025-01-01 15:56 | Hospitalist Progress Note ---
Date of Service January 01, 2025 Assessment & Plan (1) Closed fracture of left distal femur: Plan: ##Left distal femur fracture Occurred when her right leg fell through the barn floor, left leg was bent backwards and she heard a snap consistent with acute trauma leading to femoral fracture S/p Open reduction internal fixation 12/29/2024, uncomplicated, 100ml EBL Tolerating regular diet, added on PPI, activity per ortho -IRF vs SNF upon d/c ##Acute blood loss anemia HBG trends 8.1>7.0 (1 unit PRBCs)>8.7>7.7 (1 unit PRBCs)>9.5>8.7>8.4 -without hemodynamic instability -No s/s of active blood loss -Fe studies with normal transferrin % sat, normal Fe, normal ferritin -started on B12 supp -CTAP 12/29/24: Soft tissue edema in the upper left thigh and anterior to the left hip. Fluid within the greater trochanteric bursa. No identified hematoma. -H/H 8.4/25.4 stable ##hyponatremia -Na 130 possible etiology r/t IVF administration secondary to kiah-operative fluids -without confusion, irritability, muscle weakness, ADAM -serum osmo 275, urine Na 13 -fluid restriction -TSH normal -Na normalizing at 135 this am ##Mitral regurgitation Chronic, no history of heart failure ##Hypothyroidism Continue Synthroid ##Hyperlipidemia -atorvastatin Plan: d/c tomorrow am to SNF DVT PPx: SCDs, on ASA 81mg BID per surgery (2) Mitral regurgitation: Admission and Anticipated Discharge Date Admission Date: December 28, 2024 Subjective Sitting up in chair this morning. Awake, alert and oriented. Her left leg is extended and elevated. Immobilizer present to left leg. States her pain has been well controlled on scheduled Tylenol. Has been eating and drinking well. She is scheduled to go to [place] at [facility] tomorrow morning at 0900. Review of Systems Review of Systems: All systems reviewed & are unremarkable except as noted in Subjective Physical Exam Physical Exam: GENERAL APPEARANCE: A&O. Sitting comfortably in chair. NAD. SKIN: Normal color without rashes or lesions. Normal turgor. HEENT: Head AT/NC. Buccal mucosa is moist and pink. NECK: No jugular venous distention. No thyroid enlargement. There is no lymphadenopathy. HEART: RRR with soft, S1 murmur. No gallop or rub. LUNGS: Normal inspiratory effort. CTA without w/r/r. ABDOMEN: No guarding or rigidity. Normoactive BS in all four quadrants. Abdomen soft and NT. EXTREMITIES: No edema, No peripheral cyanosis. Ankle dorsiflexion/plantarflexion intact bilaterally with 5/5 strength. Surgical dressing not visualized due to leg immobilizer. Sensation intact to left foot. Able to wiggle toes. Cap refill <2sec to left foot. +PT/DP to left foot. Neuro: CN 2-12 grossly intact. No focal neuro deficits Results & Data Results & Data Vital Signs (Past 12 Hours) Vital Signs Temp Pulse Resp BP Pulse Ox O2 Del Method 01/01/25 15:00 36.6 C 83 18 119/73 92 Room Air 01/01/25 10:28 36.4 C L 88 18 115/72 93 Room Air 01/01/25 07:15 36.5 C 82 18 126/76 92 Room Air PG Care Time/CCT Total # of Minutes Spent Total Time Spent with Patient: Total time spent is greater than 50% in coordination of care (as documented) at patient's floor/unit and/or counseling patient: Coding Level of Care Code 07870 SUB INP/OBS CARE 3/50MIN Diagnoses Other closed fracture of distal end of left femur, initial encounter S72.492A Encounter type: initial encounter Fracture morphology: other fracture Mitral regurgitation I34.0 (1) Closed fracture of left distal femur Encounter type: initial encounter Fracture morphology: other fracture Qualified Code(s): S72.492A - Other fracture of lower end of left femur, initial encounter for closed fracture
[2025-01-02 07:11] VITALS: BP 127/75; PULSE 88; RESP 18; TEMP 97.9; O2SAT 91
[2025-01-02 08:02] LABS: Hematocrit (blood only) 27.6 % (37.0-47.0); Hemoglobin 9.1 g/dl (12.0-16.0); Immature Granulocytes # (auto) 0.02 K/uL (0.01-0.20); Immature Granulocytes % (auto) 0.3 %; Mean Corpuscular Hemoglobin 31.8 pg (25.0-34.0); Mean Corpuscular Volume 96.5 fL (80.0-100.0); Platelet Count 162 K/uL (130-400); RDW Standard Deviation 51.4 fL (36.4-46.3); Red Blood Count 2.86 M/uL (4.20-5.40); White Blood Count 7.41 K/ul (4.8-10.8)
--- NOTE | 2025-01-02 14:23 | Discharge Summary ---
Discharge Summary Date of Service January 02, 2025 Principal Dx & Hospital Course #1 = Principal Diagnosis (1) Closed fracture of left distal femur: Josseline is an 79 year old female that was admitted to [facility] on 12/28/24 s/p fall in her barn with mechanism being right leg falling through faulty cely with subsequent left leg bending up underneath her. She was diagnosed with left acute comminuted femoral fracture with displacement and angulation in the emergency department with orthopedic consultation recommending surgical intervention. She underwent ORIF periprosthetic distal femur fracture (left) on 12/29/24. Immediately post op she had a low trending hemoglobin at 7.0 and received 1 unit of PRBCs. She also had CTAP noncontrast immediately in the postoperative period to evaluate for abdominal free fluid which was unremarka ble. She received an additional unit of PRBCs day #1 postop as her hemoglobin downtrended again with serial stability/rise in the following post op days #2-4. D/C hemoglobin>9.1. She did have some nausea postoperatively and was started on a PPI. She tolerated eating and drinking without emesis. She fully participated in PT and will be transitioned to SNF with ortho and PCP f/u. ##Left distal femur fracture Occurred when her right leg fell through the barn floor, left leg was bent backwards and she heard a snap consistent with acute trauma leading to femoral fracture S/p Open reduction internal fixation 12/29/2024, uncomplicated, 100ml EBL Tolerating regular diet, added on PPI, activity per ortho, did well with PT -SNF upon d/c -d/c'ed on ASA 81mg BID for DVT proph per surgery, Cefadroxil per ortho, tramadol as needed for pain ##Acute blood loss anemia HBG trends 8.1>7.0 (1 unit PRBCs)>8.7>7.7 (1 unit PRBCs)>9.5>8.7>8.4>9.1 -without hemodynamic instability -No s/s of active blood loss -Fe studies with normal transferrin % sat, normal Fe, normal ferritin -started on B12 supp -CTAP 12/29/24: Soft tissue edema in the upper left thigh and anterior to the left hip. Fluid within the greater trochanteric bursa. No identified hematoma. -H/H stable upon d/c ##hyponatremia (resolved) -Na 130 possible etiology r/t IVF administration secondary to kiah-operative fluids -without confusion, irritability, muscle weakness, ADAM -serum osmo 275, urine Na 13 -fluid restriction -TSH normal -UA to evaluate for casts with 1+leuk esterase, 1+blood, negative UC>relayed to patient to f/u with PCP (blood possibly related to layton insertion) -Na normalized at 135 01/01/25 ##Mitral regurgitation Chronic, no history of heart failure ##Hypothyroidism Continue Synthroid at d/c ##Hyperlipidemia -atorvastatin at d/c Plan: d/c to SNF DVT PPx: ASA 81mg BID per surgery recs (2) Mitral regurgitation: Admission HPI Per Admitting Provider Josseline is an 79-year-old female with past medical history of hypothyroidism, benign tremor, depression/anxiety, mitral regurgitation, IBS, hyperlipidemia, stress incontinence who at her leg fell through a hole in her barn roof which caused her leg to bend backwards. She had pain in her left knee with swelling at the time, she did not strike her head/lose consciousness/fall through the floor. She is not anticoagulated. Per signout: X-ray in the ER shows an acute comminuted fracture of the distal left femur with displacement and angulation. Left knee replacement is noted. She is normotensive and with a regular heart rate. Dr. Castellanos consulted. Adequate pain control with tylenol and hydromorphine Recommended knee immobilizer however this was not able to be applied PUlses intact OR repair AM 12/29 Per patient: Josseline is seen at the bedside. She reports she was walking on the top of the barn floor. There are some thin pieces of boards on the floor. She was moving hay lionel around when her RIGHT leg went through a floorboard and her weight dropped causing her LEFT leg to bend backwards. She immediately had severe pain and cried out, her sons were able to come help her. Could not put any weight at all on the leg without severe pain into the knee. Family got her onto a retort unloader and into the car and came directly to the ER. Medical History: - Prediabetes, does take metformin. A1C 'is around 6, whatever that means' - Takes synthroid for hypothyroidism - Takes atorvastatin for HLD - Takes aspirin 'whenever I feel like it, supposed to be 3 times a week' but actually takes around once per week. Last took an aspirin monday before last (8 days ago). - Takes effexor 75mg sporadically but not consistently No COPD, no hx farmers lung No kidney problems No heart attacks NO anginal symptoms No tobacco No ETOH No drugs Sulfa allergies --> hives. Toelrates penicillin well without allergy NSQUIPS: 4.1% Risk of serious complications, 4.7% risk of any complications (overall risk). 0.1% change of cardiac complication. DNR/DNI Reviewed with/benefits of blood at bedside, consent signed Discharge Exam GENERAL APPEARANCE: A&O. Sitting comfortably in chair. NAD. SKIN: Normal color without rashes or lesions. Normal turgor. HEENT: Head AT/NC. Buccal mucosa is moist and pink. NECK: No jugular venous distention. No thyroid enlargement. There is no lymphadenopathy. HEART: RRR with soft, S1 murmur. No gallop or rub. LUNGS: Normal inspiratory effort. CTA without w/r/r. ABDOMEN: No guarding or rigidity. Normoactive BS in all four quadrants. Abdomen soft and NT. EXTREMITIES: No edema, No peripheral cyanosis. Ankle dorsiflexion/plantarflexion intact bilaterally with 5/5 strength. Surgical dressing not visualized due to leg immobilizer. Sensation intact to left foot. Able to wiggle toes. Cap refill <2sec to left foot. +PT/DP to left foot. Neuro: CN 2-12 grossly intact. No focal neuro deficits. Discharge Plan Discharge Items Patient Disposition: Transfer Long-Term Fac Reason For Visit: L FEMORAL FRACTURE Discharge Diagnosis: Distal femur fracture, s/p left ORIF Condition on Discharge: Good Activity: Per Instructions section Weightbearing: Left non-weightbearing Non-emergency contact: Surgeon Call non-emergency contact if: your symptoms worsen, your temperature is above 101.5, your wound has increased redness and your wound has increased drainage Follow-up/Referrals: Bjorn Aldrich MD [Primary Care Provider] - Abdiaziz Castellanos DO [Physician] - Diet: Carb Consistent or DM2 Diet Comment: Patient is pre-diabetic, recommendation for carb consistent diet Addtl Attending Provider Instructions: Ms. Garcia, You were admitted to the hospital after a fall that required surgery to your femur for stability. You received two units of blood while in the hospital due to a low blood count which can happen after surgery. You blood count levels have remained stable. Your blood count on discharge has improved. [facility] for [facility]. Your medications have been sent to their facility. You had a Layton catheter placed to drain your bladder during that surgery that remained in place and was discontinued today. If you have any symptoms of urinary frequency, burning with urination, fever or chills please report them accordingly to the staff and the assisted facility or to your family doctor. Your pain has been well controlled with the use of Tylenol. A prescription for Tramadol has been sent to the [facility] if you need stronger medication to control your pain. You will be placed on an antibiotic called Cefadroxil to take twice a day for ten days to decrease the risk of a skin infection from your surgery. You will also be placed on a baby aspirin twice a day for 6 weeks to prevent blood clots. Attached are all of the additional discharge instructions from your orthopedic provider. Once you are discharged from rehab, please ensure you follow up with your family doctor. Thank you for allowing us to participate in your care. Addtl Civil Engineering Project Manager Provider Instructions: ORTHOPEDIC INSTRUCTIONS Activity Recommendations: Nonweightbearing on the left leg for at least 6 weeks. Knee immobilizer at all times until follow-up in the office in 2 weeks. At that point we may start progressing you some with knee motion. Medications: Narcotic pain medications as needed for pain control Cefadroxil take twice a day for 10 days to prevent any infections. Aspirin 81 mg twice a day for 6 weeks to prevent blood clots. Dressing Care: Leave the dressing intact for the first 2 weeks. The knee immobilizer should be over the dressing. Showering: You may clean yourself and try to shower but do not get the dressing wet. Diet: You may resume your previous diet. Things To Watch For: 1. Drainage from the incision site that occurs more than one week after your surgery. 2. Increased redness at the incision site. 3. Fever above 102 degrees Fahrenheit. 4. Unusual chest pain or shortness of breath. 5. Call [facility] at with any of the above problems Follow-Up Visit: Follow-up with Dr. Castellanos's office 2-3 weeks after your day of surgery. We will remove your mary and answer any questions. If you have any additional questions or concerns, Dr Castellanos is usually in the office at the same time and will be available Please call the office to set up an appointment for a time that works for you. Pending Studies at Discharge: No Stand-Alone Forms: My [facility] Skilled Items Patient informed of condition?: Yes DNR: Yes Discharge Level of Care: Skilled Communicable Disease: No Discharge Prognosis: Stable Lines: None Urinary Catheter: No Medications and DC Order Prescriptions: New sennosides [Senna Lax] 8.6 mg Tablet 17.2 mg PO HS Qty: 30 0RF aspirin 81 mg Tablet,Delayed Release (Dr/Ec) 81 mg PO BID Qty: 60 0RF levothyroxine [Synthroid] 88 mcg Tablet 88 mcg PO DAILYBB Qty: 30 0RF pantoprazole 40 mg Tablet,Delayed Release (Dr/Ec) 40 mg PO DAILY Qty: 30 0RF docusate sodium 100 mg Capsule 100 mg PO BID Qty: 60 0RF tramadol 50 mg tablet 50 mg PO Q6H Qty: 10 0RF cefadroxil 500 mg capsule 500 mg PO BID Qty: 20 0RF Continued multivitamin Tablet 1 tab PO QAM Qty: 30 0RF Patient Comments: 12/28- otc unable to verify atorvastatin 80 mg tablet 80 mg PO HS Qty: 90 3RF venlafaxine 75 mg capsule,extended release 24hr 75 mg PO DAILY Qty: 90 3RF cyanocobalamin (vitamin B-12) [Vitamin B-12] 1,000 mcg Tablet 1,000 mcg PO QAM Qty: 30 0RF Patient Comments: 12/28- otc unable to verify metformin 500 mg tablet extended release 24 hr 500 mg PO BID Qty: 180 3RF calcium carbonate-vitamin D3 [Calcium 600 + D(3)] 600 mg calcium- 200 unit capsule 1 cap PO QAM Qty: 30 0RF Discontinued levothyroxine 88 mcg tablet 88 mcg PO QAM Qty: 90 3RF aspirin 81 mg tablet,delayed release (DR/EC) 81 mg PO [id number] Patient Comments: 10/11- otc unable to verify Rx Instructions: 81 mg PO Two DAYS A WEEK; Discharge Orders: Discharge Order (Routine); Ordered 01/02/25 Ordered By: Sue Serna/Other Patient Handouts: Femur Fx ORIF Admission Data Admit Date/Time: 12/28/24 13:38 Attending Provider: Jillian Cuevas Admit Provider: Tyler Li Primary Care Provider: Bjorn Aldrich Other Providers: Tyler Li; Abdiaziz Castellanos; [facility]; [facility] Other Interventions: Discharge Summary Assessment (RN) Last Done: 01/02/25 09:02 Hospital Stay Data Consultations 12/28/24 13:42 ED Decision to Admit Stat 12/28/24 14:22 Consult Orthopedic Surgery Routine Procedures Performed Operation Date: 12/29/24 07:30 Actual Procedures p Open Reduction Internal Fixation Femur(Left) - Abdiaziz Castellanos DO Diagnostic Imagining Performed 12/29/24 FL femur LT 2V Routine 12/29/24 17:48 CT abd pelvis wo con Stat Pending Results Patient Have Any Pending Studies at Discharge: No Discharge Instructions Given to Patient (Per Discharging Provider) Ms. Garcia, You were admitted to the hospital after a fall that required surgery to your femur for stability. You received two units of blood while in the hospital due to a low blood count which can happen after surgery. You blood count levels have remained stable. Your blood count on discharge has improved. [facility] for [facility]. Your medications have been sent to their facility. You had a Layton catheter placed to drain your bladder during that surgery that remained in place and was discontinued today. If you have any symptoms of urinary frequency, burning with urination, fever or chills please report them accordingly to the staff and the assisted facility or to your family doctor. Your pain has been well controlled with the use of Tylenol. A prescription for Tramadol has been sent to the [facility] if you need stronger medication to control your pain. You will be placed on an antibiotic called Cefadroxil to take twice a day for ten days to decrease the risk of a skin infection from your surgery. You will also be placed on a baby aspirin twice a day for 6 weeks to prevent blood clots. Attached are all of the additional discharge instructions from your orthopedic provider. Once you are discharged from rehab, please ensure you follow up with your family doctor. Thank you for allowing us to participate in your care. Total Time Total Time Spent Total Time Spent (In Minutes): 50 minutes Coding Level of Care Code 54700 INP/OBS DISCH >30 MIN Diagnoses Other closed fracture of distal end of left femur, initial encounter S72.492A Encounter type: initial encounter Fracture morphology: other fracture Mitral regurgitation I34.0
== END 2025-01-02 10:11 | DRG 481 ==
LOC: ED 11:20 → SUATTDRO 13:38 → 3W 13:38
DX: Z79.84 Long term (current) use of oral hypoglycemic drugs; R73.03 Prediabetes; Z79.890 Hormone replacement therapy; K58.9 Irritable bowel syndrome, unspecified; Z88.2 Allergy status to sulfonamides; Z79.899 Other long term (current) drug therapy; Z79.82 Long term (current) use of aspirin; F41.9 Anxiety disorder, unspecified; N39.3 Stress incontinence (female) (male); E78.5 Hyperlipidemia, unspecified; I34.0 Nonrheumatic mitral (valve) insufficiency; Y92.71 Barn as the place of occurrence of the external cause; D62 Acute posthemorrhagic anemia; W17.89XA Other fall from one level to another, initial encounter; S72.492A Other fracture of lower end of left femur, initial encounter for closed fracture; E87.1 Hypo-osmolality and hyponatremia; F32.A Depression, unspecified; E03.9 Hypothyroidism, unspecified